=== PATIENT | female | born 1945 | race Caucasian/White ===

== ENCOUNTER 2017-06-21 10:55 | Inpatient (IN) | payer MEDICARE ==
[~2017-06-21] VITALS: Ht 175.3 cm; Wt 70.0 kg
[2017-06-21] MEDS ORDERED: IOHEXOL 350 MG/ML 10 ML VIAL (for RAD DIAG) IVCONTRAST ONE (10:56)
[2017-06-21 10:57] VITALS: BP 172/72; PULSE 122; RESP 18; TEMP 97.9; O2SAT 99
[2017-06-21 11:33] VITALS: BP 119/64; PULSE 82; RESP 24; O2SAT 100
[2017-06-21] MEDS ORDERED: SODIUM CHLORIDE 0.9% FLUSH 10 ML FLUSH IV FLUSH PRN (11:45)
[2017-06-21 12:59] LABS: AUTOMATED NEUTROPHIL # 9.7 TH/MM3 (1.8-7.7); BASOPHIL # 0.1 TH/MM3 (0-0.2); BASOPHIL % 0.4 % (0.0-2.0); EOSINOPHIL # 0.1 TH/MM3 (0-0.4); HEMATOCRIT 34.5 % (35.0-46.0); HEMOGLOBIN 11.8 GM/DL (11.6-15.3); LYMPH % 6.7 % (9.0-44.0); LYMPHOCYTE # 0.8 TH/MM3 (1.0-4.8); MEAN CELL VOLUME 88.1 FL (80.0-100.0); MEAN CORPUSCULAR HEMOGLOBIN 30.2 PG (27.0-34.0); MEAN CORPUSCULAR HGB CONC 34.3 % (32.0-36.0); MEAN PLATELET VOLUME 7.3 FL (7.0-11.0); MONO % 12.2 % (0.0-8.0); MONOCYTE # 1.5 TH/MM3 (0-0.9); NEUT % 79.7 % (16.0-70.0); PLATELET COUNT 420 TH/MM3 (150-450); RED BLOOD COUNT 3.91 MIL/MM3 (4.00-5.30); RED CELL DISTRIBUTION WIDTH 14.6 % (11.6-17.2); WHITE BLOOD COUNT 12.2 TH/MM3 (4.0-11.0)
[2017-06-21 13:07] LABS: ALBUMIN 2.7 GM/DL (3.4-5.0); ALT (GPT) 8 U/L (10-53); AST (GOT) 18 U/L (15-37); BICARBONATE 25.1 MEQ/L (21.0-32.0); BLOOD UREA NITROGEN 13 MG/DL (7-18); CALCIUM 8.5 MG/DL (8.5-10.1); CHLORIDE 108 MEQ/L (98-107); CREATININE 0.73 MG/DL (0.50-1.00); GLOMERULAR FILTRATION RATE 79 ML/MIN (>89); GLUCOSE,RANDOM 91 MG/DL (74-106); SODIUM (NA) 140 MEQ/L (136-145)
[2017-06-21 13:08] LABS: ALKALINE PHOSPHATASE 91 U/L (45-117); TOTAL BILIRUBIN ADULT 0.3 MG/DL (0.2-1.0); TOTAL PROTEIN 7.3 GM/DL (6.4-8.2)
--- NOTE | 2017-06-21 14:11 | PD ---
HPI Chief Complaint: GI Complaint Time Seen by Provider: 11:27 Travel History International Travel<30 days: No Contact w/Intl Traveler<30days: No Traveled to known affect area: No History of Present Illness HPI 71-year-old female arrives due to concern for perforation of bowel which is evidently observed on CT scan obtained yesterday as an outpatient at [facility]. Patient has a history of colon cancer and has been undergoing radiation therapy. She denies pain nausea vomiting fever. Chronic fatigue is reported. There has been no abrupt change in symptoms. PFSH Past Medical History Cancer: Yes (COLON) Radiation Therapy: Yes Thyroid Disease: Yes Influenza Vaccination: No Past Surgical History Section: Yes Hysterectomy: Yes Social History Alcohol Use: No Tobacco Use: No Substance Use: No Allergies-Medications (Allergen,Severity, Reaction): Coded Allergies: No Known Allergies (Unverified , 06/21/17) Reported Meds & Prescriptions Reported Meds & Active Scripts Active Active Prescriptions or Reported Medications Unobtainable Review of Systems Except as stated in HPI: all other systems reviewed are Neg General / Constitutional: No: Fever Physical Exam Narrative GENERAL: 71-year-old female pleasant no acute distress RECTAL: There is no palpable mass within the rectal vault however the mucosa is somewhat firm generally. Guaiac study is positive. There is no appreciable blood on gross exam. No fissure or fistula. SKIN: Warm and dry. HEAD: Atraumatic. Normocephalic. EYES: Pupils equal and round. No scleral icterus. No injection or drainage. ENT: No nasal bleeding or discharge. Mucous membranes pink and moist. CARDIOVASCULAR: Regular rate and rhythm. RESPIRATORY: No accessory muscle use. Clear to auscultation. Breath sounds equal bilaterally. GASTROINTESTINAL: Abdomen is soft. There is no focus of tenderness. MUSCULOSKELETAL: Extremities without clubbing, cyanosis, or edema. No obvious deformities. NEUROLOGICAL: Awake and alert. No obvious cranial nerve deficits. Motor grossly within normal limits. Five out of 5 muscle strength in the arms and legs. Normal speech. PSYCHIATRIC: Appropriate mood and affect; insight and judgment normal. Vital Signs Date Time Temp Pulse Resp B/P (MAP) Pulse Ox O2 Delivery O2 Flow Rate FiO2 06/21/17 14:36 76 17 108/58 (75) 100 Room Air 06/21/17 11:33 82 24 119/64 (82) 100 Room Air 06/21/17 10:57 97.9 122 18 172/72 (105) 99 Data Data Last Documented VS Vital Signs Date Time Temp Pulse Resp B/P (MAP) Pulse Ox O2 Delivery O2 Flow Rate FiO2 06/21/17 14:36 76 17 108/58 (75) 100 Room Air 06/21/17 10:57 97.9 Orders Orders Complete Blood Count With Diff (06/21/17 11:36) Comprehensive Metabolic Panel (06/21/17 11:36) Lactic Acid (06/21/17 11:36) Urinalysis - C+S If Indicated (06/21/17 11:36) Ct Abd/Pel W Iv Contrast(Rout) (06/21/17 11:36) Iv Access Insert/Monitor (06/21/17 11:36) Ecg Monitoring (06/21/17 11:36) Oximetry (06/21/17 11:36) Sodium Chloride 0.9% Flush (Ns Flush) (06/21/17 11:45) Iohexol 350 Inj (Omnipaque 350 Inj) (06/21/17 10:56) Admit Order (Ed Use Only) (06/21/17 ) Vital Signs (Adult) Q4H (06/21/17 14:54) Diet Heart Healthy (06/21/17 Dinner) Activity Bed Rest (06/21/17 14:54) Notify Dr: Other (06/21/17 14:54) Labs Laboratory Tests Test 06/21/17 11:50 06/21/17 14:05 White Blood Count 12.2 TH/MM3 Red Blood Count 3.91 MIL/MM3 Hemoglobin 11.8 GM/DL Hematocrit 34.5 % Mean Corpuscular Volume 88.1 FL Mean Corpuscular Hemoglobin 30.2 PG Mean Corpuscular Hemoglobin Concent 34.3 % Red Cell Distribution Width 14.6 % Platelet Count 420 TH/MM3 Mean Platelet Volume 7.3 FL Neutrophils (%) (Auto) 79.7 % Lymphocytes (%) (Auto) 6.7 % Monocytes (%) (Auto) 12.2 % Eosinophils (%) (Auto) 1.0 % Basophils (%) (Auto) 0.4 % Neutrophils # (Auto) 9.7 TH/MM3 Lymphocytes # (Auto) 0.8 TH/MM3 Monocytes # (Auto) 1.5 TH/MM3 Eosinophils # (Auto) 0.1 TH/MM3 Basophils # (Auto) 0.1 TH/MM3 CBC Comment AUTO DIFF Differential Comment AUTO DIFF CONFIRMED Platelet Estimate NORMAL Platelet Morphology Comment NORMAL Red Cell Morphology Comment NORMAL Blood Urea Nitrogen 13 MG/DL Creatinine 0.73 MG/DL Random Glucose 91 MG/DL Total Protein 7.3 GM/DL Albumin 2.7 GM/DL Calcium Level 8.5 MG/DL Alkaline Phosphatase 91 U/L Aspartate Amino Transf (AST/SGOT) 18 U/L Alanine Aminotransferase (ALT/SGPT) 8 U/L Total Bilirubin 0.3 MG/DL Sodium Level 140 MEQ/L Potassium Level 3.6 MEQ/L Chloride Level 108 MEQ/L Carbon Dioxide Level 25.1 MEQ/L Anion Gap 7 MEQ/L Estimat Glomerular Filtration Rate 79 ML/MIN Lactic Acid Level 1.4 mmol/L Urine Color YELLOW Urine Turbidity CLEAR Urine pH 5.5 Urine Specific [place] GREATER THAN 1.050 Urine Protein 30 mg/dL Urine Glucose (UA) NEG mg/dL Urine Ketones NEG mg/dL Urine Occult Blood NEG Urine Nitrite NEG Urine Bilirubin NEG Urine Urobilinogen 2.0 MG/DL Urine Leukocyte Esterase NEG Urine WBC 8 /hpf Urine Hyaline Casts 4 /lpf Urine Mucus FEW /lpf Microscopic Urinalysis Comment CULT NOT INDICATED MDM Medical Decision Making Medical Screen Exam Complete: Yes Emergency Medical Condition: Yes Medical Record Reviewed: Yes Differential Diagnosis Constipation, Gastritis, Acute Cholecystitis, Biliary Colic, Pancreatitis, HERNANDEZ , Hepatitis, Bowel Obstruction, Cystitis, Mesenteric Ischemia, AAA, Appendicitis , Renal Stone/Hydronephrosis, GERD, perforated viscous Narrative Course CBC & BMP Diagram 06/21/17 11:50 Total Protein 7.3, Albumin 2.7 L, Calcium Level 8.5, Alkaline Phosphatase 91, Aspartate Amino Transf (AST/SGOT) 18, Alanine Aminotransferase (ALT/SGPT) 8 L, Total Bilirubin 0.3 Last Impressions Abdomen/Pelvis CT 06/21/17 1136 Signed Impressions: Service Date/Time: June 13:21 - CONCLUSION: Eccentric wall thickening with perirectal fat invasion in the low pelvis characteristic of neoplasm. Small air pocket with an air fluid level identified lateral to the lower rectum is characteristic of a small contained perforation. No evidence of local regional lymphadenopathy or distant metastatic disease. Status post cholecystectomy and hysterectomy. Filipe Reeves MD Case was discussed with Dr. Cronin. The case was discussed with Dr. Lemus. The patient will be admitted for further investigation into the rectal mass with air in the bowel lumen. Her abdomen is soft and nontender. The rectal exam reveals no obvious mass however it does on exam reveal somewhat firm but nontender bowel wall. Diagnosis Primary Impression: Rectal mass Additional Impression: Perforation of rectum Admitting Information Admitting Physician Requests: Observation Scripts Unable to Obtain Active Prescriptions or Reported Meds Trevor Markham MD Jun 21, 2017 14:11
--- NOTE | 2017-06-21 14:28 | RADRPT ---
EXAM DATE/TIME: 06/21/2017 13:21 [place] COMPARISON: No previous studies available for comparison. INDICATIONS : Lower abdominal pain, bloody stool. IV CONTRAST: 95 cc Omnipaque 350 (iohexol) IV ORAL CONTRAST: No oral contrast ingested. RADIATION DOSE: 6.64 CTDIvol (mGy) MEDICAL HISTORY : Carcinoma, colon. SURGICAL HISTORY : Hysterectomy. Cholecystectomy. ENCOUNTER: Initial ACUITY: 1 week PAIN SCALE: 3/10 LOCATION: Bilateral lower quadrant TECHNIQUE: Volumetric scanning of the abdomen and pelvis was performed. Using automated exposure control and ad justment of the mA and/or kV according to patient size, radiation dose was kept as low as reasonably achievable to obtain optimal diagnostic quality images. DICOM format image data is available electro nically for review and comparison. FINDINGS: LOWER LUNGS: The visualized lower lungs are clear. LIVER: Homogeneous density without lesion. There is no dilation of the biliary tree. Post cholecystectomy c lips are noted. SPLEEN: Normal size without lesion. PANCREAS: Within normal limits. KIDNEYS: Normal in size and shape. There is no mass, stone or hydronephrosis. ADRENAL GLANDS: Within normal limits. VASCULAR: There is no aortic aneurysm. BOWEL/MESENTERY: Eccentric wall thickening with perirectal fat invasion extending to the pre-coccygeal soft tissues is identified in the pelvis. Just above the anus there is a left-sided air pocket with an air fluid lev el which appears to be extraluminal. Scattered diverticula are seen in the sigmoid colon. Intestinal tract is otherwise unremarkable. ABDOMINAL WALL: Within normal limits. RETROPERITONEUM: There is no lymphadenopathy. BLADDER: No wall thickening or mass. REPRODUCTIVE: Uterus is been removed. INGUINAL: There is no lymphadenopathy or hernia. MUSCULOSKELETAL: Within normal limits for patient age. CONCLUSION: Eccentric wall thickening with perirectal fat invasion in the low pelvis characteristic of neoplasm. Small air pocket with an air fluid level identified lateral to the lower rectum is characteristic of a small contained perforation. No evidence of local regional lymphadenopathy or distant metastatic disease. Status post cholecystectomy and hysterectomy. Filipe Reeves MD on June 21, 2017 at 14:20 Board Certified Radiologist. This report was verified electronically.
[2017-06-21 14:36] VITALS: BP 108/58; PULSE 76; RESP 17; O2SAT 100
[2017-06-21 15:24] LABS: BILIRUBIN, URINE NEG (NEG); BLOOD, URINE NEG (NEG); GLUCOSE,URINE NEG (NEG); HYALINE CAST, URINE 4 /lpf (RARE); KETONE, URINE NEG (NEG); MUCUS URINE FEW /lpf (OCC); NITRITE,URINE NEG (NEG); PH, URINE 5.5 (5.0-8.5); URINE COLOR YELLOW (YELLW/STRAW); URINE LEUKOCYTE ESTERASE NEG (NEG)
[2017-06-21] MEDS ORDERED: MORPHINE SULFATE 2 MG/ML INJ IV PUSH PRN (16:00)
[2017-06-21] MEDS ORDERED: NALOXONE HCL 0.4 MG/ML AMP IV PUSH PRN (16:00)
[2017-06-21] MEDS ORDERED: SENNOSIDES 8.6 MG TAB PO PRN (16:00)
[2017-06-21] MEDS ORDERED: ONDANSETRON HCL 4 MG/2 ML VIAL IVP PRN (16:00)
--- NOTE | 2017-06-21 16:09 | HHI.HP ---
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 Over the last months she has had increasing rectal pain which became worse today and was associated with an inability to produce a bowel movement. She denies fevers denies diarrhea. In the past she underwent radiation and chemotherapy for treatment of her colorectal cancer. Treatment was in [place]. She has a daughter Peyton whose phone number is [phone]. Review of Systems Constitutional: DENIES: Fever, Weight gain, Weight loss, Chills Eyes: DENIES: Blurred vision, Diplopia, Eye inflammation, Eye pain Ears, nose, mouth, throat: DENIES: Tinnitus, Vertigo, Throat pain, Hoarseness Respiratory: DENIES: Cough, Wheezing, Hemoptysis, Sputum production Cardiovascular: DENIES: Chest pain, Palpitations, Syncope Gastrointestinal: COMPLAINS OF: Abdominal pain, Constipation, DENIES: Black stools, Bloody stools, Diarrhea, Nausea, Vomiting, Difficulty Swallowing Genitourinary: DENIES: Abnormal vaginal bleeding, Dysmenorrhea, Dyspareunia Musculoskeletal: DENIES: Joint pain, Muscle aches, Stiffness Neurologic: DENIES: Headache, Localized weakness, Seizures, Speech Problems, Poor Balance Psychiatric: DENIES: Anxiety, Confusion, Depression Past Family Social History Past Medical History Hypothyroidism Thyroid cancer Early dementia Past Surgical History Thyroidectomy section 3 Allergies: Coded Allergies: No Known Allergies (Unverified , 06/21/17) Family History Stomach cancer in grandmother GI cancer in uncle and father Social History Denies tobacco or alcohol use Physical Exam Vital Signs Vital Signs Date Time Temp Pulse Resp B/P (MAP) Pulse Ox O2 Delivery O2 Flow Rate FiO2 06/21/17 14:36 76 17 108/58 (75) 100 Room Air 06/21/17 11:33 82 24 119/64 (82) 100 Room Air 06/21/17 10:57 97.9 122 18 172/72 (105) 99 Physical Exam GENERAL: This is a thin but strong appearing patient, in no apparent distress. SKIN: No rashes, ecchymoses or lesions. Cool and dry. HEAD: Atraumatic. Normocephalic. No temporal or scalp tenderness. EYES: Pupils equal round and reactive. Mild strabismus left eye. No scleral icterus. No injection or drainage. ENT: Nose without bleeding, purulent drainage or septal hematoma. Throat without erythema, tonsillar hypertrophy or exudate. Uvula midline. Airway patent. NECK: Trachea midline. No JVD or lymphadenopathy. Supple, nontender, no meningeal signs. CARDIOVASCULAR: Regular rate and rhythm without murmurs, gallops, or rubs. RESPIRATORY: Clear to auscultation. Breath sounds equal bilaterally. No wheezes , rales, or rhonchi. GASTROINTESTINAL: Abdomen soft, non-tender, nondistended. No hepato-splenomegaly , or palpable masses. No guarding. MUSCULOSKELETAL: Extremities without clubbing, cyanosis, or edema. No joint tenderness, effusion, or edema noted. No calf tenderness. Negative Homans sign bilaterally. NEUROLOGICAL: Awake and alert. Cranial nerves II through XII intact. Motor and sensory grossly within normal limits. Five out of 5 muscle strength in all muscle groups. Normal speech. Laboratory Laboratory Tests Test 06/21/17 11:50 06/21/17 14:05 White Blood Count 12.2 Red Blood Count 3.91 Hemoglobin 11.8 Hematocrit 34.5 Mean Corpuscular Volume 88.1 Mean Corpuscular Hemoglobin 30.2 Mean Corpuscular Hemoglobin Concent 34.3 Red Cell Distribution Width 14.6 Platelet Count 420 Mean Platelet Volume 7.3 Neutrophils (%) (Auto) 79.7 Lymphocytes (%) (Auto) 6.7 Monocytes (%) (Auto) 12.2 Eosinophils (%) (Auto) 1.0 Basophils (%) (Auto) 0.4 Neutrophils # (Auto) 9.7 Lymphocytes # (Auto) 0.8 Monocytes # (Auto) 1.5 Eosinophils # (Auto) 0.1 Basophils # (Auto) 0.1 CBC Comment AUTO DIFF Differential Comment AUTO DIFF CONFIRMED Platelet Estimate NORMAL Platelet Morphology Comment NORMAL Red Cell Morphology Comment NORMAL Blood Urea Nitrogen 13 Creatinine 0.73 Random Glucose 91 Total Protein 7.3 Albumin 2.7 Calcium Level 8.5 Alkaline Phosphatase 91 Aspartate Amino Transf (AST/SGOT) 18 Alanine Aminotransferase (ALT/SGPT) 8 Total Bilirubin 0.3 Sodium Level 140 Potassium Level 3.6 Chloride Level 108 Carbon Dioxide Level 25.1 Anion Gap 7 Estimat Glomerular Filtration Rate 79 Lactic Acid Level 1.4 Urine Color YELLOW Urine Turbidity CLEAR Urine pH 5.5 Urine Specific [place] GREATER THAN 1.050 Urine Protein 30 Urine Glucose (UA) NEG Urine Ketones NEG Urine Occult Blood NEG Urine Nitrite NEG Urine Bilirubin NEG Urine Urobilinogen 2.0 Urine Leukocyte Esterase NEG Urine WBC 8 Urine Hyaline Casts 4 Urine Mucus FEW Microscopic Urinalysis Comment CULT NOT INDICATED Result Diagram: 06/21/17 1150 06/21/17 1150 Caprinshikha VTE Risk Assessment Caprini VTE Risk Assessment: Mod/High Risk (score >= 2) Caprini Risk Assessment Model Point Value = 1 Point Value = 2 Point Value = 3 Point Value = 5 Age 41-60 Minor surgery BMI > 25 kg/m2 Swollen legs Varicose veins or History of unexplained or recurrent spontaneous Oral contraceptives or hormone replacement Sepsis (< 1 month) Serious lung disease, including pneumonia (< 1 month) Abnormal pulmonary function Acute myocardial infarction Congestive heart failure (< 1 month) History of inflammatory bowel disease Medical patient at bed rest Age 61-74 Arthroscopic surgery Major open surgery (> 45 min) Laparoscopic surgery (> 45 min) Malignancy Confined to bed (> 72 hours) Immobilizing plaster cast Central venous access Age >= 75 History of VTE Family history of VTE Factor V Leiden Prothrombin [id number] Lupus anticoagulant Anticardiolipin antibodies Elevated serum homocysteine Heparin-induced thrombocytopenia Other congenital or acquired thrombophilia Stroke (< 1 month) Elective arthroplasty Hip, pelvis, or leg fracture Acute spinal cord injury (< 1 month) Prophylaxis Regimen Total Risk Factor Score Risk Level Prophylaxis Regimen 0-1 Low Early ambulation 2 Moderate Order ONE of the following: *Sequential Compression Device (SCD) *Heparin 5000 units SQ BID 3-4 Higher Order ONE of the following medications: *Heparin 5000 units SQ TID *Enoxaparin/Lovenox 40 mg SQ daily (WT < 150 kg, CrCl > 30 mL/min) *Enoxaparin/Lovenox 30 mg SQ daily (WT < 150 kg, CrCl > 10-29 mL/min) *Enoxaparin/Lovenox 30 mg SQ BID (WT < 150 kg, CrCl > 30 mL/min) AND/OR *Sequential Compression Device (SCD) 5 or more Highest Order ONE of the following medications: *Heparin 5000 units SQ TID (Preferred with Epidurals) *Enoxaparin/Lovenox 40 mg SQ daily (WT < 150 kg, CrCl > 30 mL/min) *Enoxaparin/Lovenox 30 mg SQ daily (WT < 150 kg, CrCl > 10-29 mL/min) *Enoxaparin/Lovenox 30 mg SQ BID (WT < 150 kg, CrCl > 30 mL/min) AND *Sequential Compression Device (SCD) Assessment and Plan Problem List: (1) Rectal mass ICD Code: K62.9 - Disease of anus and rectum, unspecified Assessment and Plan Rectal mass Patient has a history of colorectal cancer 2-3 months of narrow bore stools, worsening 1 month of worsening rectal pain with inability to produce BM today Recurrence of colorectal cancer is a very likely scenario Appreciate colorectal surgery consult Leukocytosis Urinalysis shows no infection We will obtain chest x-ray to rule out common causes We will cover with Flagyl given her pockets in rectal tissue Follow WBC trend h/o Hypothyroidism History of thyroid cancer and total thyroidectomy Continue home Synthroid dose h/o Early Dementia She takes no medicine for this yet DVT Prophylaxis SCDs (anticoagulants if surgery not anticipated) Physician Certification 2 Midnight Certification Type: Admission for Inpatient Services Order for Inpatient Services The services are ordered in accordance with Medicare regulations or non- Medicare payer requirements, as applicable. In the case of services not specified as inpatient-only, they are appropriately provided as inpatient services in accordance with the 2-midnight benchmark. Estimated LOS (days): 6 days is the estimated time the patient will need to remain in the hospital, assuming treatment plan goals are met and no additional complications. Post-Hospital Plan: Home Health Palomo Pacheco MD Jun 21, 2017 16:09
[2017-06-21] MEDS: metroNIDAZOLE 500 MG INJ 100 ML IV SCH (16:41)
[2017-06-21] MEDS: traMADol HCL 50 MG TAB PO PRN (16:42)
[2017-06-21 16:43] VITALS: BP 113/69; PULSE 72; RESP 23; O2SAT 100
[2017-06-21 17:08] VITALS: BP 143/65; PULSE 69; RESP 16; TEMP 98.1
[2017-06-21 21:10] VITALS: BP_SYST 100; BP_SYST 121; BP_DIAS 59; BP_DIAS 73; PULSE 63; PULSE 85; RESP 18; TEMP 95.9; TEMP 99.6; O2SAT 96; O2SAT 97
[2017-06-21] MEDS ORDERED: CHLORHEXIDINE GLUCONATE 2 % 1 PACK (2 CLOTHS) TOPICAL PRN ×2 (22:15→22:30)
[2017-06-21] MEDS ORDERED: METOPROLOL TARTRATE 25 MG TAB PO PRN (22:15)
[2017-06-21] MEDS ORDERED: LACTATED RINGER'S 1000 ML IV PRN ×2 (22:15→22:30)
[2017-06-21] MEDS ORDERED: SODIUM CHLORID 0.9% 500 ML IV PRN ×2 (22:15→22:30)
[2017-06-21] MEDS ORDERED: POVIDONE IODINE 5% (ANTISEPSIS KIT) 4 APPLICATIONS EACH NARE PRN ×2 (22:15→22:30)
[2017-06-21] MEDS: MAGNESIUM CITRATE SOLN 300 ML BTL PO SCH (23:15)
[2017-06-21] MEDS: SODIUM CHLORIDE 0.9% FLUSH 10 ML FLUSH IV FLUSH PRN (23:15)
[2017-06-21] MEDS: SODIUM CHLOR 0.9% 1000 ML INJ 1,000 ML IV SCH (23:15)
[2017-06-22] VITALS: BP 116/58; PULSE 69; RESP 18; TEMP 97.7; O2SAT 99
[2017-06-22] MEDS: metroNIDAZOLE 500 MG INJ 100 ML IV SCH ×3 (00:33→16:56)
[2017-06-22] MEDS: traMADol HCL 50 MG TAB PO PRN (00:35)
[2017-06-22] MEDS: MAGNESIUM CITRATE SOLN 300 ML BTL PO SCH (02:20)
[2017-06-22] MEDS: SODIUM CHLORIDE 0.9% FLUSH 10 ML FLUSH IV FLUSH PRN (03:29)
[2017-06-22 07:17] LABS: AUTOMATED NEUTROPHIL # 4.5 TH/MM3 (1.8-7.7); BASOPHIL % 0.4 % (0.0-2.0); EOSINOPHIL # 0.1 TH/MM3 (0-0.4); EOSINOPHIL % 1.7 % (0.0-4.0); HEMATOCRIT 29.2 % (35.0-46.0); HEMOGLOBIN 10.1 GM/DL (11.6-15.3); LYMPH % 7.7 % (9.0-44.0); LYMPHOCYTE # 0.4 TH/MM3 (1.0-4.8); MEAN CELL VOLUME 88.6 FL (80.0-100.0); MEAN CORPUSCULAR HEMOGLOBIN 30.6 PG (27.0-34.0); MEAN CORPUSCULAR HGB CONC 34.5 % (32.0-36.0); MEAN PLATELET VOLUME 6.7 FL (7.0-11.0); MONO % 12.2 % (0.0-8.0); MONOCYTE # 0.7 TH/MM3 (0-0.9); PLATELET COUNT 348 TH/MM3 (150-450); RED BLOOD COUNT 3.29 MIL/MM3 (4.00-5.30); RED CELL DISTRIBUTION WIDTH 14.6 % (11.6-17.2); WHITE BLOOD COUNT 5.7 TH/MM3 (4.0-11.0)
[2017-06-22 07:40] LABS: BICARBONATE 26.2 MEQ/L (21.0-32.0); CALCIUM 8.3 MG/DL (8.5-10.1); CREATININE 0.56 MG/DL (0.50-1.00)
[2017-06-22 08:00] VITALS: BP 99/50; PULSE 66; RESP 18; TEMP 96.9; O2SAT 97
[2017-06-22] MEDS: SODIUM CHLOR 0.9% 1000 ML INJ 1,000 ML IV SCH ×2 (08:15→18:00)
[2017-06-22 12:00] VITALS: BP 95/54; PULSE 74; RESP 18; TEMP 98.5; O2SAT 98
[2017-06-22] MEDS ORDERED: PROPOFOL 200 MG/20 ML AMP IV ONE (12:00)
[2017-06-22] MEDS ORDERED: LIDOCAINE HCL 1% PF 5 ML SYRINGE OTHER ONE (12:00)
[2017-06-22] MEDS ORDERED: ROCURONIUM INJ 50 MG/5 ML SYRINGE IV PUSH ONE (12:00)
[2017-06-22] MEDS ORDERED: ceFAZolin INJ 1,000 MG VIAL IV ONE ×2 (12:00→16:30)
[2017-06-22] MEDS ORDERED: GLYCOPYRROLATE 1 MG/5 ML SYRINGE IV PUSH ONE (12:00)
[2017-06-22] MEDS ORDERED: DEXAMETHASONE SOD PHOS 4 MG/ML VIAL IV ONE (12:00)
[2017-06-22] MEDS ORDERED: NEOSTIGMINE 5 MG/5 ML SYRINGE IV PUSH ONE (12:00)
[2017-06-22] MEDS ORDERED: ONDANSETRON HCL 4 MG/2 ML VIAL IV ONE (12:00)
[2017-06-22] MEDS ORDERED: PHENYLEPH/NS 1000 MCG/10 ML SYR IV ONE (12:00)
[2017-06-22] MEDS ORDERED: LIDOCAINE 1%/EPINEPHrine 1:100,000 SOLN 50 ML VIAL ONE (14:52)
[2017-06-22] MEDS ORDERED: LIDOCAINE 1%/EPINEPHrine 1:100,000 SOLN 30 ML VIAL ONE (14:52)
--- NOTE | 2017-06-22 15:47 | HHI.PR ---
Subjective Remarks Patient is in good spirits today despite likely diagnosis of recurrence of rectal cancer. Her pain is adequately controlled and she is planned for exploratory laparotomy with colorectal surgery this afternoon. She remains n.p.o. for surgery. Objective Vitals Vital Signs Date Time Temp Pulse Resp B/P (MAP) Pulse Ox O2 Delivery O2 Flow Rate FiO2 06/22/17 12:00 98.5 74 18 95/54 (68) 98 06/22/17 08:00 96.9 66 18 99/50 (66) 97 06/22/17 00:00 97.7 69 18 116/58 (77) 99 06/21/17 21:10 95.9 85 18 121/59 (79) 97 06/21/17 17:08 98.1 69 16 143/65 (91) 06/21/17 16:59 06/21/17 16:43 72 23 113/69 (84) 100 Room Air I/O 06/21/17 06/21/17 06/21/17 06/22/17 06/22/17 06/22/17 07:00 15:00 23:00 07:00 15:00 23:00 Intake Total 100 ml Balance 100 ml Intake IV Total 100 ml Result Diagram: 06/22/17 0549 06/22/17 0549 Objective Remarks GENERAL: Thin but energetic SKIN: Warm and dry. HEAD: Normocephalic. EYES: No scleral icterus. No injection or drainage. NECK: Supple, trachea midline. No JVD or lymphadenopathy. CARDIOVASCULAR: Regular rate and rhythm without murmurs, gallops, or rubs. RESPIRATORY: Breath sounds equal bilaterally. No accessory muscle use. GASTROINTESTINAL: Abdomen soft, non-tender, nondistended. EXTREMITIES: No cyanosis, or edema. NEUROLOGICAL: Awake, alert, and oriented x 3. Non-focal. A/P Problem List: (1) Rectal mass ICD Code: K62.9 - Disease of anus and rectum, unspecified Assessment and Plan Rectal mass Patient has a history of colorectal cancer 2-3 months of narrow bore stools, worsening 1 month of worsening rectal pain with inability to produce BM today Recurrence of colorectal cancer is a very likely scenario Undergoing surgery today with possible ileostomy placement Appreciate colorectal surgery consult Leukocytosis White blood cells are normal today Continue Flagyl given her pockets in rectal tissue h/o Hypothyroidism History of thyroid cancer and total thyroidectomy Continue home Synthroid dose h/o Early Dementia She takes no medicine for this yet DVT Prophylaxis SCDs Palomo Pacheco MD Jun 22, 2017 15:47
[2017-06-22 16:00] VITALS: BP 114/56; PULSE 72; RESP 18; TEMP 98.5; O2SAT 96
[2017-06-22] MEDS ORDERED: DO NOT ADM ANY ANTICOAGULANT DRUGS PRN (18:25)
[2017-06-22] MEDS ORDERED: BENZOCAINE 6 MG/MENTHOL 10 MG LOZENGE BUCCAL PRN (18:30)
[2017-06-22] MEDS ORDERED: Post-op Orders (for Pharmacy) XX ONE (18:30)
[2017-06-22] MEDS ORDERED: POTASSIUM CHLOR 20 MEQ PREMIX 100 ML IV PRN (18:30)
[2017-06-22] MEDS ORDERED: NALOXONE HCL 0.4 MG/ML AMP IV PUSH PRN (18:30)
[2017-06-22] MEDS ORDERED: ACETAMINOPHEN 325 MG TAB PO PRN (18:30)
[2017-06-22] MEDS ORDERED: metroNIDAZOLE 500 MG INJ 100 ML IV SCH (18:30)
[2017-06-22] MEDS ORDERED: ENALAPRILAT 2.5 MG/2 ML VIAL IV PUSH PRN (18:30)
[2017-06-22] MEDS ORDERED: ENALAPRILAT 1.25 MG/ML VIAL IV PUSH PRN (18:30)
[2017-06-22] MEDS ORDERED: POTASSIUM CHLOR 40 MEQ PREMIX 100 ML IV PRN (18:30)
[2017-06-22] MEDS ORDERED: ONDANSETRON HCL 4 MG/2 ML VIAL IV PUSH PRN (18:30)
[2017-06-22] MEDS ORDERED: MORPHINE SULFATE 30 MG/30 ML PCA IV SCH (18:30)
[2017-06-22] MEDS ORDERED: MIDAZOLAM HCL 2 MG/2 ML VIAL ONE (18:39)
[2017-06-22] MEDS ORDERED: *morphine SULFATE 10 MG/ML PERIprocedure ONLY ONE (18:40)
[2017-06-22 20:00] VITALS: BP 118/58; PULSE 83; RESP 18; TEMP 96.6; O2SAT 95
[2017-06-22] MEDS: PCA - TOTAL MG MORPHINE DELIVERED PER SHIFT SCH (22:00)
[2017-06-22] MEDS: METOCLOPRAMIDE HCL 10 MG/2 ML VIAL IVS SCH (23:21)
[2017-06-23] VITALS: BP 94/53; PULSE 73; RESP 18; TEMP 97.5; O2SAT 95
--- NOTE | 2017-06-23 00:20 | EKG ---
Date Performed: 06/21/2017 Time Performed: 22:03:42 PTAGE: 71 years EKG: Sinus rhythm MARKED LEFT AXIS DEVIATION ABNORMAL ECG NO PREVIOUS TRACING DOCTOR: Cristela Ribeiro Interpretating Date/Time 06/23/2017 00:18:25
[2017-06-23] MEDS: metroNIDAZOLE 500 MG INJ 100 ML IV SCH ×3 (00:35→16:32)
[2017-06-23] MEDS: D5-NS + KCL 20 MEQ INJ 1,000 ML IV SCH ×3 (01:58→18:37)
[2017-06-23 04:00] VITALS: BP 102/54; PULSE 73; RESP 18; TEMP 97.5; O2SAT 94
[2017-06-23] MEDS: PCA - TOTAL MG MORPHINE DELIVERED PER SHIFT SCH (06:00)
[2017-06-23 06:41] LABS: AUTOMATED NEUTROPHIL # 6.8 TH/MM3 (1.8-7.7); BASOPHIL % 0.1 % (0.0-2.0); EOSINOPHIL % 0.1 % (0.0-4.0); HEMATOCRIT 27.9 % (35.0-46.0); HEMOGLOBIN 9.5 GM/DL (11.6-15.3); LYMPH % 3.6 % (9.0-44.0); LYMPHOCYTE # 0.3 TH/MM3 (1.0-4.8); MEAN CELL VOLUME 87.4 FL (80.0-100.0); MEAN CORPUSCULAR HEMOGLOBIN 29.7 PG (27.0-34.0); MEAN PLATELET VOLUME 6.6 FL (7.0-11.0); MONO % 9.9 % (0.0-8.0); MONOCYTE # 0.8 TH/MM3 (0-0.9); NEUT % 86.3 % (16.0-70.0); PLATELET COUNT 330 TH/MM3 (150-450); RED BLOOD COUNT 3.19 MIL/MM3 (4.00-5.30); RED CELL DISTRIBUTION WIDTH 14.5 % (11.6-17.2); WHITE BLOOD COUNT 7.9 TH/MM3 (4.0-11.0)
[2017-06-23 06:55] LABS: BICARBONATE 25.3 MEQ/L (21.0-32.0); CREATININE 0.5 MG/DL (0.50-1.00)
[2017-06-23 08:00] VITALS: BP 101/58; PULSE 72; RESP 16; TEMP 97.7; O2SAT 95
[2017-06-23] MEDS: PANTOPRAZOLE SOD 40 MG DELAYED RELEASE TAB PO SCH (09:00)
[2017-06-23] MEDS: METOCLOPRAMIDE HCL 10 MG/2 ML VIAL IVS SCH ×2 (09:00→19:48)
[2017-06-23] MEDS: PANTOPRAZOLE SODIUM 40 MG VIAL IVP SCH (09:03)
--- NOTE | 2017-06-23 10:43 | HHI.PR ---
Subjective Remarks No N or V. Not much pain. No BMs. Objective Vital Signs Date Time Temp Pulse Resp B/P (MAP) Pulse Ox O2 Delivery O2 Flow Rate FiO2 06/23/17 08:00 97.7 72 16 101/58 (72) 95 06/23/17 06:00 20 06/23/17 04:00 97.5 73 18 102/54 (70) 94 06/23/17 00:00 97.5 73 18 94/53 (67) 95 06/22/17 22:00 18 06/22/17 20:00 96.6 83 18 118/58 (78) 95 06/22/17 19:36 12 06/22/17 18:45 62 18 129/63 (85) 95 Room Air 06/22/17 18:30 67 21 141/65 (90) 100 Room Air 06/22/17 18:27 97.8 71 23 136/62 (86) 100 06/22/17 16:00 98.5 72 18 114/56 (75) 96 06/22/17 12:00 98.5 74 18 95/54 (68) 98 I/O 06/22/17 06/22/17 06/22/17 06/23/17 06/23/17 06/23/17 07:00 15:00 23:00 07:00 15:00 23:00 Intake Total 100 ml 400 ml Output Total 259 ml 150 ml Balance 100 ml 141 ml -150 ml Intake Oral 0 ml IV Total 100 ml Other 400 ml Output Urine Total 250 ml 150 ml Estimated Blood Loss 9 ml # Voids 3 # Bowel Movements 1 Result Diagram: 06/23/1761006/23/17 06 Objective Remarks VS-S Abd: soft,non distended. Stoma Swollen,pink. I&Os and Labs-OK Assessment and Plan Assessment and Plan Stable POD#1 Advance diet,decrease IVs, ambulate. Bryce Price MD Jun 23, 2017 10:42
[2017-06-23 12:00] VITALS: BP 106/53; PULSE 67; RESP 15; TEMP 96.7; O2SAT 96
[2017-06-23] MEDS: ACETAMINOPHEN/HYDROcodone 325 MG/5 MG TAB PO PRN ×3 (12:23→20:34)
[2017-06-23 16:00] VITALS: BP 105/58; PULSE 68; RESP 17; TEMP 96.5; O2SAT 94
--- NOTE | 2017-06-23 16:30 | HHI.PR ---
Subjective Remarks Pt seen and examined. POD1 s/p ex lap.AFVSS. No acute events overnight. Patient feels weak but pain is controlled. Denies N/V, CP, or SOB. Endorses some mild abdominal pain. No BM or flatus. Objective Vitals Vital Signs Date Time Temp Pulse Resp B/P (MAP) Pulse Ox O2 Delivery O2 Flow Rate FiO2 06/23/17 16:00 96.5 68 17 105/58 (74) 94 06/23/17 12:00 96.7 67 15 106/53 (70) 96 06/23/17 08:00 97.7 72 16 101/58 (72) 95 06/23/17 06:00 20 06/23/17 04:00 97.5 73 18 102/54 (70) 94 06/23/17 00:00 97.5 73 18 94/53 (67) 95 06/22/17 22:00 18 06/22/17 20:00 96.6 83 18 118/58 (78) 95 06/22/17 19:36 12 06/22/17 18:45 62 18 129/63 (85) 95 Room Air 06/22/17 18:30 67 21 141/65 (90) 100 Room Air 06/22/17 18:27 97.8 71 23 136/62 (86) 100 I/O 06/22/17 06/22/17 06/22/17 06/23/17 06/23/17 06/23/17 07:00 15:00 23:00 07:00 15:00 23:00 Intake Total 100 ml 400 ml Output Total 259 ml 150 ml Balance 100 ml 141 ml -150 ml Intake Oral 0 ml IV Total 100 ml Other 400 ml Output Urine Total 250 ml 150 ml Estimated Blood Loss 9 ml # Voids 3 # Bowel Movements 1 Result Diagram: 06/23/17 0611 06/23/17 0611 Objective Remarks GENERAL: WN, WD elderly female laying comfortably in bed in NAD. SKIN: Warm and dry. HEENT: Pupils equal and round. MMM. NECK: Supple no tender LAD or JVD. HEART: RRR no m/r/g. LUNGS: CTAB without wheezes or crackles. ABDOMEN: Soft, NT, ND. Stoma pink. EXTREMITIES: No LE edema or calf tenderness. NEURO: Awake and alert. PSYCH: Appropriate mood and affect. A/P Problem List: (1) Rectal mass ICD Code: K62.9 - Disease of anus and rectum, unspecified Assessment and Plan Rectal mass Patient has a history of colorectal cancer 2-3 months of narrow bore stools, worsening 1 month of worsening rectal pain with inability to produce BM Recurrence of colorectal cancer is a very likely scenario Underwent ex lap yesterday with stoma Appreciate colorectal surgery consult Pain control Hypothyroidism History of thyroid cancer and total thyroidectomy Continue home Synthroid dose Early Dementia She takes no medicine for this yet DVT Prophylaxis Lovenox FEN Advance diet as tolerated IVF at 75 ml/hr Mary Ann Griffin MD Jun 23, 2017 16:30
[2017-06-23] MEDS: ENOXAPARIN SODIUM 40 MG/0.4 ML SYRINGE SQ SCH (17:06)
[2017-06-23] MEDS: KETOROLAC TROMETHAMINE 30 MG/ML (IVP) VIAL IVP PRN (18:43)
[2017-06-23 20:00] VITALS: BP 103/53; PULSE 71; RESP 20; TEMP 97.6; O2SAT 93
[2017-06-24] VITALS: BP 101/56; PULSE 69; RESP 18; TEMP 97; O2SAT 95
[2017-06-24] MEDS: metroNIDAZOLE 500 MG INJ 100 ML IV SCH ×2 (01:08→08:44)
[2017-06-24] MEDS: ACETAMINOPHEN/HYDROcodone 325 MG/5 MG TAB PO PRN ×5 (01:11→22:30)
[2017-06-24] MEDS: D5-NS + KCL 20 MEQ INJ 1,000 ML IV SCH (05:56)
[2017-06-24 08:00] VITALS: BP 123/63; PULSE 65; RESP 16; TEMP 98.5; O2SAT 95
[2017-06-24] MEDS: KETOROLAC TROMETHAMINE 30 MG/ML (IVP) VIAL IVP PRN (08:42)
[2017-06-24] MEDS: METOCLOPRAMIDE HCL 10 MG/2 ML VIAL IVS SCH ×2 (08:42→20:16)
[2017-06-24] MEDS: PANTOPRAZOLE SODIUM 40 MG VIAL IVP SCH (08:44)
[2017-06-24] MEDS: PANTOPRAZOLE SOD 40 MG DELAYED RELEASE TAB PO SCH (08:44)
--- NOTE | 2017-06-24 09:51 | HHI.PR ---
Subjective Remarks Had some nausea after pain med on empty stomach. None now. No vomitung. Not much pain. No BMs. Objective Vital Signs Date Time Temp Pulse Resp B/P (MAP) Pulse Ox O2 Delivery O2 Flow Rate FiO2 06/24/17 08:00 98.5 65 16 123/63 (83) 95 06/24/17 00:00 97.0 69 18 101/56 (71) 95 06/23/17 20:00 97.6 71 20 103/53 (70) 93 06/23/17 16:00 96.5 68 17 105/58 (74) 94 06/23/17 12:00 96.7 67 15 106/53 (70) 96 I/O 06/23/17 06/23/17 06/23/17 06/24/17 06/24/17 06/24/17 07:00 15:00 23:00 07:00 15:00 23:00 Intake Total 1440 ml 360 ml Output Total 150 ml 700 ml 600 ml Balance -150 ml 740 ml -240 ml Intake Oral 240 ml 360 ml IV Total 1200 ml Output Urine Total 150 ml 700 ml 600 ml Stool Total 0 ml # Bowel Movements 0 Result Diagram: 06/23/17 0611 06/23/17 0611 Objective Remarks VS-S Abd: soft,non distended. Stoma Swollen,pink. No stool Assessment and Plan Assessment and Plan Stable POD#2 Advance diet,decrease IVs, ambulate.D/C Bryce Lang MD Jun 24, 2017 09:51
[2017-06-24 09:52] LABS: AUTOMATED NEUTROPHIL # 4.1 TH/MM3 (1.8-7.7); BASOPHIL % 0.3 % (0.0-2.0); EOSINOPHIL # 0.1 TH/MM3 (0-0.4); EOSINOPHIL % 1.8 % (0.0-4.0); HEMATOCRIT 27.8 % (35.0-46.0); HEMOGLOBIN 9.6 GM/DL (11.6-15.3); LYMPH % 7.3 % (9.0-44.0); LYMPHOCYTE # 0.4 TH/MM3 (1.0-4.8); MEAN CELL VOLUME 88.2 FL (80.0-100.0); MEAN CORPUSCULAR HEMOGLOBIN 30.4 PG (27.0-34.0); MEAN CORPUSCULAR HGB CONC 34.5 % (32.0-36.0); MEAN PLATELET VOLUME 6.4 FL (7.0-11.0); MONO % 11.8 % (0.0-8.0); MONOCYTE # 0.6 TH/MM3 (0-0.9); NEUT % 78.8 % (16.0-70.0); PLATELET COUNT 305 TH/MM3 (150-450); RED BLOOD COUNT 3.15 MIL/MM3 (4.00-5.30); RED CELL DISTRIBUTION WIDTH 14.8 % (11.6-17.2); WHITE BLOOD COUNT 5.2 TH/MM3 (4.0-11.0)
[2017-06-24 10:08] LABS: BICARBONATE 28.6 MEQ/L (21.0-32.0); CALCIUM 8.1 MG/DL (8.5-10.1); CREATININE 0.55 MG/DL (0.50-1.00)
[2017-06-24 12:00] VITALS: BP 125/68; PULSE 63; RESP 17; TEMP 97.3; O2SAT 96
--- NOTE | 2017-06-24 17:05 | HHI.PR ---
Subjective Remarks Pt seen and examined. AFVSS. No acute events overnight. Reports she is feeling better today. She is trying to eat more. Denies N/V or significant abdominal pain. No CP or SOB. Objective Vitals Vital Signs Date Time Temp Pulse Resp B/P (MAP) Pulse Ox O2 Delivery O2 Flow Rate FiO2 06/24/17 12:00 97.3 63 17 125/68 (87) 96 06/24/17 08:00 98.5 65 16 123/63 (83) 95 06/24/17 00:00 97.0 69 18 101/56 (71) 95 06/23/17 20:00 97.6 71 20 103/53 (70) 93 I/O 06/23/17 06/23/17 06/23/17 06/24/17 06/24/17 06/24/17 07:00 15:00 23:00 07:00 15:00 23:00 Intake Total 1440 ml 360 ml 100 ml Output Total 150 ml 700 ml 600 ml Balance -150 ml 740 ml -240 ml 100 ml Intake Oral 240 ml 360 ml IV Total 1200 ml 100 ml Output Urine Total 150 ml 700 ml 600 ml Stool Total 0 ml # Bowel Movements 0 Result Diagram: 06/24/17 0853 06/24/17 0853 Objective Remarks GENERAL: WN, WD elderly female laying comfortably in bed in NAD. SKIN: Warm and dry. HEENT: Pupils equal and round. MMM. NECK: Supple no tender LAD or JVD. HEART: RRR no m/r/g. LUNGS: CTAB without wheezes or crackles. ABDOMEN: Soft, NT, ND. Stoma pink. EXTREMITIES: No LE edema or calf tenderness. NEURO: Awake and alert. PSYCH: Appropriate mood and affect. A/P Problem List: (1) Rectal mass ICD Code: K62.9 - Disease of anus and rectum, unspecified Assessment and Plan Rectal mass Patient has a history of colorectal cancer 2-3 months of narrow bore stools, worsening 1 month of worsening rectal pain with inability to produce BM Recurrence of colorectal cancer is a very likely scenario Underwent ex lap 06/22 with stoma Appreciate colorectal surgery consult Encourage PO and advance diet Pain control D/C Flagyl as not suspected to be an infectious process Hypothyroidism History of thyroid cancer and total thyroidectomy Continue home Synthroid Deconditioning PT to eval and treat DVT Prophylaxis Lovenox FEN Advance diet IVF at 50 ml/hr Discharge Planning Anticipate D/C in a couple days pending ability to eat and clearance from colorectal surgery Mary Ann Griffin MD Jun 24, 2017 17:05
[2017-06-24] MEDS: ENOXAPARIN SODIUM 40 MG/0.4 ML SYRINGE SQ SCH (18:17)
[2017-06-24 20:00] VITALS: BP 112/56; PULSE 66; RESP 18; TEMP 97.3; O2SAT 97
[2017-06-25] VITALS: BP 111/56; PULSE 65; RESP 18; TEMP 97.4; O2SAT 98
[2017-06-25] MEDS: D5-NS + KCL 20 MEQ INJ 1,000 ML IV SCH ×2 (02:39→21:51)
[2017-06-25] MEDS: ACETAMINOPHEN/HYDROcodone 325 MG/5 MG TAB PO PRN ×3 (02:40→21:49)
[2017-06-25 08:00] VITALS: BP 124/61; PULSE 68; RESP 20; TEMP 96.9; O2SAT 96
[2017-06-25] MEDS: PANTOPRAZOLE SODIUM 40 MG VIAL IVP SCH (08:22)
[2017-06-25] MEDS: PANTOPRAZOLE SOD 40 MG DELAYED RELEASE TAB PO SCH (08:23)
[2017-06-25] MEDS: METOCLOPRAMIDE HCL 10 MG/2 ML VIAL IVS SCH (08:24)
--- NOTE | 2017-06-25 10:23 | HHI.FF ---
Face to Face Verification Diagnosis: (1) Rectal mass (2) Physical deconditioning Physical Therapy Order: Evaluate and Treat, Improve ambulation, Strength and gait training Home Health Nursing Order: Wound care and dressing changes Nursing assessment with vital signs I have seen patient Maria D Dennis on 06/25/17. My clinical findings support the need for the requested home health care services because: Deconditioned w/ increased weakness High risk of falls I certify that my clinical findings support that this patient is homebound because: Unsteady gait/balance Unsafe to leave home unassisted Mary Ann Griffin MD Jun 25, 2017 10:23
--- NOTE | 2017-06-25 10:24 | HHI.PR ---
Subjective Remarks Pt seen and examined. AFVSS. No acute events overnight. Patient resting in bed and states she is feeling a little better. Ambulated with PT. Tolerating PO without nausea or vomiting. Denies CP or SOB. Pain controlled. Objective Vitals Vital Signs Date Time Temp Pulse Resp B/P (MAP) Pulse Ox O2 Delivery O2 Flow Rate FiO2 06/25/17 08:00 96.9 68 20 124/61 (82) 96 06/25/17 00:00 97.4 65 18 111/56 (74) 98 06/24/17 20:00 97.3 66 18 112/56 (74) 97 06/24/17 12:00 97.3 63 17 125/68 (87) 96 I/O 06/24/17 06/24/17 06/24/17 06/25/17 06/25/17 06/25/17 07:00 15:00 23:00 07:00 15:00 23:00 Intake Total 360 ml 100 ml 240 ml 360 ml 240 ml Output Total 600 ml 300 ml 525 ml Balance -240 ml 100 ml -60 ml -165 ml 240 ml Intake Oral 360 ml 240 ml 360 ml 240 ml IV Total 100 ml Output Urine Total 600 ml 300 ml 500 ml Stool Total 0 ml 25 ml # Bowel Movements 0 Result Diagram: 06/24/17 0853 06/24/17 08 Objective Remarks GENERAL: WN, WD elderly female laying comfortably in bed in NAD. SKIN: Warm and dry. HEENT: Pupils equal and round. MMM. NECK: Supple no tender LAD or JVD. HEART: RRR no m/r/g. LUNGS: CTAB without wheezes or crackles. ABDOMEN: Soft, NT, ND. Stoma pink. EXTREMITIES: No LE edema or calf tenderness. NEURO: Awake and alert. PSYCH: Appropriate mood and affect. Procedures Flexible sigmoidoscopy with biopsies and laparoscopic-assisted loop colostomy A/P Problem List: (1) Rectal cancer ICD Code: C20 - Malignant neoplasm of rectum Assessment and Plan 71 YOWF with h/o colorectal cancer presented with 2-3 months of narrow stools and rectal pain. On CT imagine there was eccentric wall thickening with perirectal fat invasion in the low pelvis characteristic of neoplasm and likely a small contained perforation. Rectal mass Colorectal surgery consulted Underwent ex-lap 06/22 with stoma, doing well post-operatively Biopsies of mass pending No evidence of metastatic disease on CT scan Encourage PO Pain control Hypothyroidism History of thyroid cancer and total thyroidectomy Continue home Synthroid Deconditioning PT to eval and treat DVT Prophylaxis Lovenox FEN Advance diet IVF at 50 ml/hr Discharge Planning D/C pending clearance from colorectal surgery Mary Ann Griffin MD Jun 25, 2017 10:24
--- NOTE | 2017-06-25 11:26 | MP ---
cc: MT VELA M.D. DATE OF SURGERY: June 22, 2017 PREOPERATIVE DIAGNOSIS Perforated rectal cancer. PROCEDURE 1. Flexible sigmoidoscopy with biopsies. 2. Laparoscopic-assisted loop colostomy. POSTOPERATIVE DIAGNOSIS Rectal cancer with perforation. SURGEON Dr. Vela. GENERATOR WORKER Dr. Jordy Price. PROCEDURE The patient was placed in the supine position. After adequate general anesthesia her legs were placed in Scroggins stirrups and supported appropriately. The abdomen and perineum were then prepped with Betadine solution and draped in usual sterile fashion. Initially rectal exam was performed identifying cancer in the rectal vault, appeared to be perforated posteriorly. Olympus colonoscope was introduced into the rectum and advanced easily through the rectum into the rectosigmoid and left colon. The prep at this point was somewhat poor and the scope was gradually withdrawn noting inflammatory changes and appeared to be cancer in the rectum. Several biopsies of this tumor were obtained. Next, the abdomen was draped in the usual sterile fashion. With Dr. Price's assistance a small infraumbilical incision was made and a Veress needle inserted establishing pneumoperitoneum. A 5 mm trocar was then placed without difficulty under direct vision. Laparoscopy confirmed some adhesions with the omentum throughout the abdomen. These were taken down after placing a second 5 mm trocar in the suprapubic position in the midline. The sigmoid colon was mobilized medially by dividing along the white line of Toldt. There did appear to be enough laxity and looping to perform a sigmoid loop diverting colostomy. Therefore, after additional mobilization and some omental adhesions were taken down circular stab wound was created in the left lower abdomen, into the abdomen after splitting the rectus muscles, releasing the pneumoperitoneum. The loop of sigmoid colon was brought up through the stab wound without tension and with good blood supply getting an avascular plane in the mesentery and placing a colostomy bar. The trocar sites were then closed with interrupted Vicryl sutures. The colostomy was then matured by creating a transverse colotomy and maturing both proximal and distal limbs with interrupted Chromic catgut sutures around the circumference. At completion the stoma did appear to be patent. Red rubber catheter was placed distally and a distal washout was completed, releasing large amounts of fecal material from the anal canal. Sterile colostomy appliance finally fitted over the new stoma. The patient tolerated the procedure quite well and was brought to the recovery room in stable condition. Sponge and needle counts were correct at the end of the procedure. MD LINDA Flores/GERMÁN /5:03 PM /11:12 AM
[2017-06-25 12:00] VITALS: BP 117/62; PULSE 63; RESP 19; TEMP 96.9; O2SAT 97
--- NOTE | 2017-06-25 14:53 | PD.WCN.NOT ---
Wound Consult Description: Consult for NEW OSTOMY TEACHING per Dr Lemus Communicated with: Patient Recommendation: Release air from pouch as needed Empty pouch of effluent (stool) when 1/3-1/2 full Change wafer every 5-7 days and PRN Assess stoma (red or pink and moist) Additional Information: Patient seen on [address] [place] [address] for ostomy assessment and teaching. Ostomy Type: Colostomy (Loop) Surgeon: Tarun Lemus MD Date of Surgery: Jun 22, 2017 Complete: Starter kit (Consent obtained), Education materials (Left at bedside) Educated patient on: Appliances available Stoma color When to change appliance When to seek medical attention How to cleanse around stoma Additional information Patient seen on [place] for ostomy assessment and teaching with educational materials and practice appliances both in 2 piece and one piece brought to bedside for reference and demonstration purposes. Patient was assisted in calling a family member after obtaining the correct phone number from [facility]. Stoma is located on the left side abdomen. Loop Colostomy is red, oval, moist, edematous, moderately protruding, not functioning at this time, and noted with a bar in place. There is minimal sanguinous drainage noted in pouch that was not emptied at this time. Patient was shown how to release air from pouch and how to open and close the pouch at the bottom as well. Pouch was opened at the top and the stoma was visualized by advertising copywriter and patient. Verbal consent was obtained for patient to be sent a starter kit. Victoria Sheth Jun 25, 2017 14:53
[2017-06-25 16:00] VITALS: BP 130/61; PULSE 64; RESP 20; TEMP 97.8; O2SAT 95
[2017-06-25] MEDS: ENOXAPARIN SODIUM 40 MG/0.4 ML SYRINGE SQ SCH (16:59)
[2017-06-25] MEDS ORDERED: METOCLOPRAMIDE HCL 10 MG/2 ML VIAL IVS PRN (19:15)
[2017-06-25 20:00] VITALS: BP 159/71; PULSE 74; RESP 18; TEMP 98.3; O2SAT 99
--- NOTE | 2017-06-25 22:35 | HHI.PR ---
Subjective Remarks C/R Surg POD afebrile, VSS UO good artemio PO stoma little Objective - Vital Signs Date Time Temp Pulse Resp B/P (MAP) Pulse Ox O2 Delivery O2 Flow Rate FiO2 06/25/17 20:00 98.3 74 18 159/71 (100) 99 06/22/17 18:45 Room Air Result Diagram: 06/24/17 0853 06/24/17 0853 Objective Remarks PE alert Abd - soft, stoma pouched, min stool A/P Assessment and Plan Imp: doing well adv PO stoma teaching dc plans Tarun Lemus MD Jun 25, 2017 22:34
[2017-06-26] VITALS: BP 132/60; PULSE 75; RESP 18; TEMP 97; O2SAT 95
[2017-06-26] MEDS: ACETAMINOPHEN/HYDROcodone 325 MG/5 MG TAB PO PRN ×4 (04:33→21:04)
[2017-06-26 08:00] VITALS: BP 116/58; PULSE 73; RESP 19; TEMP 97.1; O2SAT 98
[2017-06-26] MEDS: PANTOPRAZOLE SODIUM 40 MG VIAL IVP SCH (09:00)
[2017-06-26 09:25] LABS: AUTOMATED NEUTROPHIL # 5.8 TH/MM3 (1.8-7.7); BASOPHIL % 0.3 % (0.0-2.0); EOSINOPHIL # 0.3 TH/MM3 (0-0.4); EOSINOPHIL % 3.5 % (0.0-4.0); HEMATOCRIT 29.3 % (35.0-46.0); LYMPH % 7.2 % (9.0-44.0); LYMPHOCYTE # 0.5 TH/MM3 (1.0-4.8); MEAN CELL VOLUME 87.8 FL (80.0-100.0); MEAN CORPUSCULAR HEMOGLOBIN 29.9 PG (27.0-34.0); MEAN CORPUSCULAR HGB CONC 34.1 % (32.0-36.0); MEAN PLATELET VOLUME 6.4 FL (7.0-11.0); MONO % 9.1 % (0.0-8.0); MONOCYTE # 0.7 TH/MM3 (0-0.9); NEUT % 79.9 % (16.0-70.0); PLATELET COUNT 349 TH/MM3 (150-450); RED BLOOD COUNT 3.33 MIL/MM3 (4.00-5.30); RED CELL DISTRIBUTION WIDTH 14.6 % (11.6-17.2); WHITE BLOOD COUNT 7.3 TH/MM3 (4.0-11.0)
[2017-06-26 09:49] LABS: BICARBONATE 27.2 MEQ/L (21.0-32.0); CALCIUM 8.1 MG/DL (8.5-10.1); CREATININE 0.55 MG/DL (0.50-1.00)
[2017-06-26] MEDS: PANTOPRAZOLE SOD 40 MG DELAYED RELEASE TAB PO SCH (10:46)
[2017-06-26 12:00] VITALS: BP 140/67; PULSE 69; RESP 20; TEMP 98.6; O2SAT 96
--- NOTE | 2017-06-26 15:23 | HHI.PR ---
Subjective Remarks RN states that patient did not eat well. Patient states her appetite is good. Denies cp/sob. Denies abdominal pain, nausea or vomiting. Objective Vitals Vital Signs Date Time Temp Pulse Resp B/P (MAP) Pulse Ox O2 Delivery O2 Flow Rate FiO2 06/26/17 12:00 98.6 69 20 140/67 (91) 96 06/26/17 08:00 97.1 73 19 116/58 (77) 98 06/26/17 00:00 97.0 75 18 132/60 (84) 95 06/25/17 20:00 98.3 74 18 159/71 (100) 99 06/25/17 16:00 97.8 64 20 130/61 (84) 95 I/O 06/25/17 06/25/17 06/25/17 06/26/17 06/26/17 06/26/17 06:59 14:59 22:59 06:59 14:59 22:59 Intake Total 360 ml 240 ml 1760 ml 120 ml Output Total 525 ml 500 ml Balance -165 ml 240 ml 1260 ml 120 ml Intake Oral 360 ml 240 ml 760 ml 120 ml IV Total 1000 ml Output Urine Total 500 ml 500 ml Stool Total 25 ml 0 ml # Bowel Movements 0 Result Diagram: 06/26/17 0829 06/26/17 0824 Objective Remarks GENERAL: WN, WD elderly female laying comfortably in bed in NAD. SKIN: Warm and dry. HEENT: Pupils equal and round. MMM. NECK: Supple no tender LAD or JVD. HEART: RRR no m/r/g. LUNGS: CTAB without wheezes or crackles. ABDOMEN: Soft, NT, ND. Stoma pink. EXTREMITIES: No LE edema or calf tenderness. NEURO: Awake and alert. PSYCH: Appropriate mood and affect. Procedures Flexible sigmoidoscopy with biopsies and laparoscopic-assisted loop colostomy Medications and IVs Current Medications Medications (Trade) Dose Ordered Sig/Nestor Route Start Time Stop Time Status Last Admin (Narcan Inj) 0.4 mg UNSCH PRN IV PUSH 06/21/17 16:00 (NS Flush) 2 ml UNSCH PRN IV FLUSH 06/21/17 16:00 06/22/17 03:29 (Ultram) 50 mg Q8H PRN PO 06/21/17 16:00 06/22/17 00:35 (Morphine Inj) 2 mg Q4H PRN IV PUSH 06/21/17 16:00 06/22/17 03:28 Potassium Chloride/Dextrose/ Sod Cl 1,000 ml @ 50 mls/hr Q20H IV 06/22/17 18:20 06/25/17 21:51 ([place] 5-325 Mg) 1 tab Q4H PRN PO 06/22/17 18:30 06/26/17 10:47 ([place] 5-325 Mg) 2 tab Q4H PRN PO 06/22/17 18:30 06/26/17 14:36 (Tylenol) 650 mg Q4H PRN PO 06/22/17 18:30 (Protonix Inj) 40 mg DAILY IVP 06/23/17 09:00 06/23/17 09:03 (Protonix) 40 mg DAILY PO 06/23/17 09:00 06/26/17 10:46 (Zofran Inj) 4 mg Q6H PRN IV PUSH 06/22/17 18:30 06/24/17 08:42 (Vasotec Inj) 1.25 mg Q4H PRN IV PUSH 06/22/17 18:30 (Vasotec Inj) 2.5 mg Q6H PRN IV PUSH 06/22/17 18:30 (Chloraseptic Tony) 1 lozenge UNSCH PRN BUCCAL 06/22/17 18:30 Potassium Chloride 100 ml @ 50 mls/hr UNSCH PRN IV 06/22/17 18:30 Potassium Chloride 100 ml @ 25 mls/hr UNSCH PRN IV 06/22/17 18:30 (Narcan Inj) 0.4 mg UNSCH PRN IV PUSH 06/22/17 18:30 (Lovenox Inj) 40 mg Q24H SQ 06/23/17 17:00 06/25/17 16:59 (Reglan Inj) 10 mg Q12HR PRN IVS 06/25/17 19:15 A/P Problem List: (1) Rectal cancer ICD Code: C20 - Malignant neoplasm of rectum Assessment and Plan 71 YOWF with h/o colorectal cancer presented with 2-3 months of narrow stools and rectal pain. On CT imagine there was eccentric wall thickening with perirectal fat invasion in the low pelvis characteristic of neoplasm and likely a small contained perforation. Rectal mass Colorectal surgery consulted Underwent ex-lap 06/22 with stoma, doing well post-operatively Biopsies of mass pending No evidence of metastatic disease on CT scan Encourage PO Pain control Hypothyroidism History of thyroid cancer and total thyroidectomy Continue home Synthroid Deconditioning PT to eval and treat Poor appetite Will start patient on Megace. Dysuria Patient complains of lower abdominal pain earlier today which was relieved after the patient was able to urinate. Unclear if the patient had dysuria or discomfort from a distended bladder. Will check urinalysis to rule out UTI. DVT Prophylaxis Lovenox FEN Advance diet IVF at 50 ml/hr Discharge Planning Discharge pending colorectal surgery clearance. Anthony Hendricks MD Jun 26, 2017 15:23
[2017-06-26 16:00] VITALS: BP 101/56; PULSE 74; RESP 20; TEMP 97.7; O2SAT 99
--- NOTE | 2017-06-26 17:06 | PD.WCN.NOT ---
Wound Consult Description: Consult for NEW OSTOMY TEACHING per Dr Lemus Communicated with: Patient Peyton (family) Recommendation: Release air from pouch as needed Empty pouch of effluent (stool) when 1/3-1/2 full Change wafer every 5-7 days and PRN Assess stoma (red or pink and moist, functioning with brown stool) Additional Information: Patient seen on [address] [place] [address] for ostomy assessment and teaching. Ostomy Type: Colostomy (Loop) Surgeon: Tarun Lemus MD Date of Surgery: Jun 22, 2017 Complete: Starter kit (Consent obtained. 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 Patient states she has some experience with them however will need assistance. Patient was educated on the need to change the pouching system every 5-7 days and PRN for leaks. After removal of thomas, patient will need appliance size 2 3/4". Loop colostomy with 4" cut to fit pouching system in place with bar. Patient demonstrates how to open and close pouch at the top to release air within the pouch. Patient and racebook writer visualized soft semi-formed brown stool on the proximal side of the loop colostomy. There is minimal brown liquid in pouch that was not emptied by racebook writer at this time. Supplies ordered for patient to be discharged with and for use once thomas is removed. Additional information Patient seen on [address] [place] [address] for ostomy assessment and teaching. Victoria Sheth [facility] Jun 26, 2017 17:06
[2017-06-26] MEDS: ENOXAPARIN SODIUM 40 MG/0.4 ML SYRINGE SQ SCH (18:03)
[2017-06-26] MEDS: D5-NS + KCL 20 MEQ INJ 1,000 ML IV SCH (18:59)
--- NOTE | 2017-06-26 20:24 | HHI.PR ---
Subjective Remarks C/R Surg POD afebrile, VSS UO good artemio PO stoma little output Objective - Vital Signs Date Time Temp Pulse Resp B/P (MAP) Pulse Ox O2 Delivery O2 Flow Rate FiO2 06/26/17 16:00 97.7 74 20 101/56 (71) 99 06/22/17 18:45 Room Air Result Diagram: 06/26/17 0829 06/26/17 0824 Objective Remarks PE alert Abd - soft, stoma pouched, min stool, min tympany A/P Assessment and Plan Imp: doing well adv PO stoma teaching dc plans, rehab? Tarun Lemus MD Jun 26, 2017 20:24
[2017-06-27] VITALS: BP 103/59; PULSE 75; RESP 18; TEMP 98.2; O2SAT 95
[2017-06-27] MEDS: ACETAMINOPHEN/HYDROcodone 325 MG/5 MG TAB PO PRN ×4 (01:04→14:21)
[2017-06-27 08:00] VITALS: BP 124/60; PULSE 65; RESP 17; TEMP 97.5; O2SAT 97
[2017-06-27] MEDS: PANTOPRAZOLE SODIUM 40 MG VIAL IVP SCH (09:06)
[2017-06-27] MEDS: PANTOPRAZOLE SOD 40 MG DELAYED RELEASE TAB PO SCH (09:06)
[2017-06-27 09:50] LABS: BACTERIA, URINE OCC /hpf; BILIRUBIN, URINE NEG (NEG); BLOOD, URINE SMALL (NEG); GLUCOSE,URINE NEG (NEG); KETONE, URINE NEG (NEG); MUCUS URINE FEW /lpf (OCC); NITRITE,URINE NEG (NEG); SQUAMOUS EPITHELIAL CELL URINE <1 /hpf (0-5); URINE COLOR LIGHT-YELLOW (YELLW/STRAW); URINE LEUKOCYTE ESTERASE LARGE (NEG)
[2017-06-27] MEDS ORDERED: HYDR-3516 PO (10:18)
[2017-06-27] MEDS ORDERED: DRONABINOL 5 MG CAP PO SCH (11:00)
[2017-06-27 12:00] VITALS: BP 141/78; PULSE 75; RESP 18; TEMP 97; O2SAT 98
[2017-06-27] MEDS: D5-NS + KCL 20 MEQ INJ 1,000 ML IV SCH (12:31)
[2017-06-27] MEDS ORDERED: DRON5CAP PO (14:08)
--- NOTE | 2017-06-27 14:10 | HHI.DS ---
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 Over the last months she has had increasing rectal pain which became worse today and was associated with an inability to produce a bowel movement. She denies fevers denies diarrhea. In the past she underwent radiation and chemotherapy for treatment of her colorectal cancer. Treatment was in [place]. She has a daughter Peyton whose phone number is [phone]. CBC/BMP: 06/26/17 0829 06/26/17 0824 Significant Findings Laboratory Tests Test 06/26/17 08:24 06/26/17 08:29 06/27/17 08:05 Blood Urea Nitrogen 5 MG/DL (7-18) Calcium Level 8.1 MG/DL (8.5-10.1) Red Blood Count 3.33 MIL/MM3 (4.00-5.30) Hemoglobin 10.0 GM/DL (11.6-15.3) Hematocrit 29.3 % (35.0-46.0) Mean Platelet Volume 6.4 FL (7.0-11.0) Neutrophils (%) (Auto) 79.9 % (16.0-70.0) Lymphocytes (%) (Auto) 7.2 % (9.0-44.0) Monocytes (%) (Auto) 9.1 % (0.0-8.0) Lymphocytes # (Auto) 0.5 TH/MM3 (1.0-4.8) Urine Turbidity HAZY (CLEAR) Urine Occult Blood SMALL (NEG) Urine Leukocyte Esterase LARGE (NEG) Urine RBC 6 /hpf (0-3) Urine WBC 151 /hpf (0-5) Urine Bacteria OCC /hpf (NONE) Urine Mucus FEW /lpf (OCC) Imaging Last Impressions Abdomen/Pelvis CT 06/21/17 1136 Signed Impressions: Service Date/Time: June 13:21 - CONCLUSION: Eccentric wall thickening with perirectal fat invasion in the low pelvis characteristic of neoplasm. Small air pocket with an air fluid level identified lateral to the lower rectum is characteristic of a small contained perforation. No evidence of local regional lymphadenopathy or distant metastatic disease. Status post cholecystectomy and hysterectomy. Filipe Reeves MD PE at Discharge PE alert Abd - soft, stoma pouched, min stool, min tympany Pt update on day of discharge Pain is controlled, patient is tolerating diet. Patient cleared by colorectal surgery to be discharged. Pt Condition on Discharge: Good Discharge Disposition: Discharge to SNF Discharge Time: > 30 minutes Discharge Instructions DIET: Follow Instructions for: As Tolerated, No Restrictions Activities you can perform: Regular-No Restrictions Activities to Avoid: Lifting/Bending, Strenuous Activity, Driving Follow up Referrals: Appointment for Follow Up - 2 Weeks with Tarun Lemus MD PCP Follow-up New Medications: Dronabinol (Dronabinol) 5 Mg Cap 5 MG PO BID@11,16 for poor appetite, #60 CAP Hydrocodone/Acetaminophen (Hydrocodone-Acetamin 5-325 mg) 5 Mg-325 Mg Tablet 2 TAB PO Q4H PRN for PAIN SCALE 5 TO 10 for 5 Days, #60 TAB 0 Refills Anthony Hendricks MD Jun 27, 2017 14:09
== END 2017-06-27 16:14 | DRG 331 ==
LOC: NEPE 10:55 → NEDA 14:57 → N07B 17:08
PROVIDERS: ADMIT Hospitalist; ATTEND Hospitalist
PROC: 0D1N0Z4 Bypass Sigmoid Colon to Cutaneous, Open Approach (ICD-10-PCS; principal; 2017-06-22 16:26)
PROC: 0DBP8ZX Excision of Rectum, Via Natural or Artificial Opening Endoscopic, Diagnostic (ICD-10-PCS; 2017-06-22 16:26)
DX: C20 Malignant neoplasm of rectum (principal); F03.90 Unspecified dementia, unspecified severity, without behavioral disturbance, psychotic disturbance, mood disturbance, and anxiety; E89.0 Postprocedural hypothyroidism; D72.829 Elevated white blood cell count, unspecified; Z85.048 Personal history of other malignant neoplasm of rectum, rectosigmoid junction, and anus; Z85.850 Personal history of malignant neoplasm of thyroid
CPT/HCPCS: 74177; 80048; 80053; 81001; 83605; 85025; 87086; 88305; 93005; 94150; 99285; C9113; J0690; J1100; J1650; J1885; J2250; J2270; J2370; J2405; J2710; J2765; J3010; J3480; J7030; Q9967

== ENCOUNTER 2017-09-04 08:53 | Inpatient (IN) | payer MEDICARE ==
[~2017-09-04] VITALS: Ht 170.2 cm; Wt 61.2 kg
[~2017-09-04 08:53] MED LIST: DRON5CAP PO; HYDR-3516 PO
[2017-09-04 12:00] VITALS: BP 109/54; PULSE 75; RESP 16; TEMP 97.8; O2SAT 99
[2017-09-04 14:32] LABS: AUTOMATED NEUTROPHIL # 7.8 TH/MM3 (1.8-7.7); BASOPHIL % 0.3 % (0.0-2.0); EOSINOPHIL % 0.3 % (0.0-4.0); HEMATOCRIT 31.9 % (35.0-46.0); HEMOGLOBIN 10.5 GM/DL (11.6-15.3); LYMPH % 5.2 % (9.0-44.0); LYMPHOCYTE # 0.5 TH/MM3 (1.0-4.8); MEAN CELL VOLUME 84.5 FL (80.0-100.0); MEAN CORPUSCULAR HEMOGLOBIN 27.9 PG (27.0-34.0); MONO % 8.4 % (0.0-8.0); MONOCYTE # 0.8 TH/MM3 (0-0.9); NEUT % 85.8 % (16.0-70.0); PLATELET COUNT 318 TH/MM3 (150-450); RED BLOOD COUNT 3.78 MIL/MM3 (4.00-5.30); RED CELL DISTRIBUTION WIDTH 14.9 % (11.6-17.2); WHITE BLOOD COUNT 9.2 TH/MM3 (4.0-11.0)
[2017-09-04 14:54] LABS: INTERNATIONAL NORMALIZED RATIO 1.1 RATIO
[2017-09-04 14:55] LABS: ALBUMIN 2.8 GM/DL (3.4-5.0); ALT (GPT) 8 U/L (10-53); AST (GOT) 9 U/L (15-37); BICARBONATE 30.3 MEQ/L (21.0-32.0); BLOOD UREA NITROGEN 8 MG/DL (7-18); CALCIUM 8.7 MG/DL (8.5-10.1); CHLORIDE 104 MEQ/L (98-107); CREATININE 0.59 MG/DL (0.50-1.00); GLOMERULAR FILTRATION RATE 100 ML/MIN (>89); GLUCOSE,RANDOM 97 MG/DL (74-106); SODIUM (NA) 141 MEQ/L (136-145)
[2017-09-04 14:58] LABS: ALKALINE PHOSPHATASE 89 U/L (45-117); TOTAL BILIRUBIN ADULT 0.3 MG/DL (0.2-1.0); TOTAL PROTEIN 6.9 GM/DL (6.4-8.2)
[2017-09-04] MEDS ORDERED: DIATRIZOATE MEGLUM/DIATRIZOATE SOD 9 ML CUP PO ONE (15:30)
[2017-09-04] MEDS: DEXT 5%-NACL 0.9% 1000 ML INJ 1,000 ML IV SCH (15:49)
[2017-09-04 16:00] VITALS: BP 108/54; PULSE 69; RESP 16; TEMP 98.2; O2SAT 96
[2017-09-04] MEDS ORDERED: metroNIDAZOLE 500 MG INJ 100 ML IV SCH (19:15)
[2017-09-04 20:00] VITALS: BP 148/65; PULSE 72; RESP 17; TEMP 98.6; O2SAT 99
[2017-09-04] MEDS ORDERED: PANTOPRAZOLE SODIUM 40 MG VIAL IV PUSH SCH (20:00)
--- NOTE | 2017-09-04 20:08 | RADRPT ---
EXAM DATE/TIME: 09/04/2017 19:36 [facility] COMPARISON: No previous studies available for comparison. INDICATIONS : Abdomen pain; evaluate rectal cancer. ORAL CONTRAST: Partial prescribed oral contrast ingested. RADIATION DOSE: 6.7 CTDIvol (mGy) MEDICAL HISTORY : Carcinoma, rectal. SURGICAL HISTORY : Colostomy. Hysterectomy.hip ENCOUNTER: Initial ACUITY: 1 day PAIN SCALE: 7/10 LOCATION: Bilateral abdomen TECHNIQUE: Volumetric scanning of the abdomen and pelvis was performed. Using automated exposure control and ad justment of the mA and/or kV according to patient size, radiation dose was kept as low as reasonably achievable to obtain optimal diagnostic quality images. DICOM format image data is available electro nically for review and comparison. FINDINGS: Lung bases are clear. No effusion. No acute findings in the liver, spleen, adrenals or pancreas. Previous cholecystectomy. Nonobstructin g 3 mm calcification lower pole right kidney. No hydronephrosis. There is a left lower quadrant colostomy with a parastomal hernia. Colonic diverticulosis is present. No posterior left rectal mass has increased in size slightly since June 21 exam measuring up to 6.5 cm in transverse diameter by 4.4 cm in oblique anterior diameter compared with previous measureme nts of 5.9 x 3.4 cm. There is previous screw fixation proximal left femur. CONCLUSION: 1. Increasing size of presacral mass on the left side although the mass does cross midline, compared with June 21. Measurements given above. There is a left lower quadrant ostomy with small parastom al hernia. 2. Nonobstructing small right renal calculus. Previous cholecystectomy. Linden Jimenez MD on September 04, 2017 at 19:58 Board Certified Radiologist. This report was verified electronically.
[2017-09-04] MEDS: traMADol HCL 50 MG TAB PO PRN (20:13)
--- NOTE | 2017-09-04 20:22 | RADRPT ---
EXAM DATE/TIME: 09/04/2017 19:47 [facility] COMPARISON: No previous studies available for comparison. INDICATIONS : Evaluate for pneumonia, pneumothorax or communicable disease. Pre-op for colon resection. MEDICAL HISTORY : Carcinoma, rectal. SURGICAL HISTORY : Hysterectomy. section. Colostomy. Cervical fusion. ENCOUNTER: Initial ACUITY: 1 day PAIN SCORE: 0/10 LOCATION: Bilateral chest FINDINGS: PA and lateral views of the chest demonstrate the lungs to be symmetrically aerated without evidence of mass, infiltrate or effusion. The cardiomediastinal contours are unremarkable. Osseous structure s are intact except remote left rib fractures.. CONCLUSION: 1. No active disease. Linden Jimenez MD on September 04, 2017 at 20:19 Board Certified Radiologist. This report was verified electronically.
[2017-09-04] MEDS ORDERED: traMADol HCL 50 MG TAB PO SCH (23:00)
[2017-09-05] VITALS (10 sets, daily range): BP systolic 108–154; BP diastolic 58–78; PULSE 71–103; RESP 17–20; TEMP 97.6–98.8; O2SAT 96–99
[2017-09-05] MEDS: traMADol HCL 50 MG TAB PO PRN ×2 (00:07→04:12)
[2017-09-05] MEDS ORDERED: LACTATED RINGER'S 1000 ML IV PRN ×2 (03:45→07:00)
[2017-09-05] MEDS: DEXT 5%-NACL 0.9% 1000 ML INJ 1,000 ML IV SCH (04:13)
[2017-09-05] MEDS ORDERED: ePHEDrine/NS 25 MG/5 ML SYRINGE IV ONE (12:00)
[2017-09-05] MEDS ORDERED: NORMOSOL R INJ 1,000 ML IV ONE (12:00)
[2017-09-05] MEDS ORDERED: NEOSTIGMINE 5 MG/5 ML SYRINGE IV PUSH ONE (12:00)
[2017-09-05] MEDS ORDERED: DEXAMETHASONE SOD PHOS 4 MG/ML VIAL IV ONE (12:00)
[2017-09-05] MEDS ORDERED: ROCURONIUM INJ 50 MG/5 ML SYRINGE IV PUSH ONE (12:00)
[2017-09-05] MEDS ORDERED: GLYCOPYRROLATE 1 MG/5 ML SYRINGE IV PUSH ONE (12:00)
[2017-09-05] MEDS ORDERED: LIDOCAINE HCL 1% PF 5 ML SYRINGE OTHER ONE (12:00)
[2017-09-05] MEDS ORDERED: PROPOFOL 200 MG/20 ML AMP IV ONE (12:00)
[2017-09-05] MEDS ORDERED: ONDANSETRON HCL 4 MG/2 ML VIAL IV ONE (12:00)
[2017-09-05] MEDS ORDERED: PHENYLEPH/NS 1000 MCG/10 ML SYR IV ONE (12:00)
--- NOTE | 2017-09-05 12:08 | PD.HP.UP ---
H&P Update Note The Pre-Admit History and Physical Examination regarding the above named patient was reviewed (including, but not limited to, vital signs, heart, lungs, co-morbid conditions), and upon re-examination it is noted that: the patient's condition has not significantly changed since the last examination. Tarun Lemus MD September 05, 2017 12:08
[2017-09-05] MEDS ORDERED: ceFAZolin INJ 1,000 MG VIAL ONE (13:03)
--- NOTE | 2017-09-05 14:08 | MP ---
cc: Juice Casper DO DATE OF OPERATION: PREOPERATIVE DIAGNOSIS: Rectal cancer. POSTOPERATIVE DIAGNOSIS: Rectal cancer. PROCEDURE PERFORMED: Cystoscopy with bilateral ureteral catheter insertion. SURGEON: Juice Casper MD ANESTHESIA: General endotracheal tube. FLUIDS: 500 mL crystalloid. ESTIMATED BLOOD LOSS: No blood loss. COMPLICATIONS: No complications. INDICATIONS FOR PROCEDURE: Ms. Dennis is a 72-year-old female with recurrent rectal cancer, who elected to undergo ex-lap by Dr. Lemus and requests were made for bilateral ureteral catheter insertion. PROCEDURE: The patient was brought to the operating room and placed in dorsal lithotomy position, she had received preprocedure antibiotics and general endotracheal tube anesthesia was administered. She was prepped and draped in usual sterile fashion. A 22-Singaporean cystoscope was inserted in the bladder. Pancystoscopy did not reveal any abnormalities. Left ureteral orifice was identified and a 5-Singaporean open-ended catheter was inserted up the left ureter without difficulty. This was again repeated on the right side. The Lundberg was inserted and the catheters were attached to the Lundberg. She tolerated the procedure well. Juice Casper DO SWT/TL , 01:53 PM , 02:06 PM
[2017-09-05] MEDS ORDERED: SUGAMMADEX SODIUM 200 MG/2 ML VIAL IV PUSH ONE (15:03)
[2017-09-05] MEDS ORDERED: NALOXONE HCL 0.4 MG/ML AMP ONE (15:24)
[2017-09-05] MEDS ORDERED: BENZOCAINE 6 MG/MENTHOL 10 MG LOZENGE BUCCAL PRN (15:30)
[2017-09-05] MEDS ORDERED: ONDANSETRON HCL 4 MG/2 ML VIAL IV PUSH PRN (15:30)
[2017-09-05] MEDS ORDERED: POTASSIUM CHLOR 40 MEQ PREMIX 100 ML IV PRN (15:30)
[2017-09-05] MEDS ORDERED: NALOXONE HCL 0.4 MG/ML AMP IV PUSH PRN (15:30)
[2017-09-05] MEDS ORDERED: ACETAMINOPHEN 325 MG TAB PO PRN (15:30)
[2017-09-05] MEDS ORDERED: POTASSIUM CHLOR 20 MEQ PREMIX 100 ML IV PRN (15:30)
[2017-09-05] MEDS ORDERED: ENALAPRILAT 1.25 MG/ML VIAL IV PUSH PRN (15:30)
[2017-09-05] MEDS ORDERED: Post-op Orders (for Pharmacy) XX ONE (15:30)
[2017-09-05] MEDS ORDERED: ENALAPRILAT 2.5 MG/2 ML VIAL IV PUSH PRN (15:30)
[2017-09-05] MEDS ORDERED: ACETAMINOPHEN/HYDROcodone 325 MG/5 MG TAB PO PRN (15:30)
[2017-09-05] MEDS ORDERED: DO NOT ADM ANY ANTICOAGULANT DRUGS PRN ×2 (15:35→15:49)
[2017-09-05] MEDS ORDERED: MORPHINE SULFATE 4 MG/ML INJ ONE (15:47)
[2017-09-05] MEDS ORDERED: *ONDANSETRON 4 MG VIAL PERIprocedural Use ONLY ONE (16:06)
[2017-09-05] MEDS: D5-NS + KCL 20 MEQ INJ 1,000 ML IV SCH ×2 (16:25→22:03)
[2017-09-05 16:44] LABS: HEMATOCRIT 34.9 % (35.0-46.0); HEMOGLOBIN 11.4 GM/DL (11.6-15.3)
[2017-09-05] MEDS: MORPHINE SULFATE 30 MG/30 ML PCA IV SCH (17:37)
[2017-09-05] MEDS: KETOROLAC TROMETHAMINE 30 MG/ML (IVP) VIAL IVP PRN (18:35)
[2017-09-05] MEDS: METOCLOPRAMIDE HCL 10 MG/2 ML VIAL IVS SCH (20:50)
[2017-09-05] MEDS: metroNIDAZOLE 500 MG INJ 100 ML IV SCH (20:51)
[2017-09-05] MEDS: PCA - TOTAL MG MORPHINE DELIVERED PER SHIFT SCH ×2 (22:00→22:33)
[2017-09-06] VITALS (19 sets, daily range): BP systolic 94–124; BP diastolic 48–57; PULSE 85–138; RESP 16–20; TEMP 97.7–98.6; O2SAT 94–97
[2017-09-06] MEDS: D5-NS + KCL 20 MEQ INJ 1,000 ML IV SCH ×4 (04:29→21:23)
[2017-09-06 05:11] LABS: AUTOMATED NEUTROPHIL # 19.9 TH/MM3 (1.8-7.7); BASOPHIL % 0.1 % (0.0-2.0); HEMATOCRIT 27.9 % (35.0-46.0); LYMPH % 1.3 % (9.0-44.0); LYMPHOCYTE # 0.3 TH/MM3 (1.0-4.8); MEAN CELL VOLUME 85.2 FL (80.0-100.0); MEAN CORPUSCULAR HEMOGLOBIN 27.5 PG (27.0-34.0); MEAN CORPUSCULAR HGB CONC 32.3 % (32.0-36.0); MEAN PLATELET VOLUME 8.4 FL (7.0-11.0); MONO % 4.6 % (0.0-8.0); PLATELET COUNT 392 TH/MM3 (150-450); RED BLOOD COUNT 3.28 MIL/MM3 (4.00-5.30); RED CELL DISTRIBUTION WIDTH 14.9 % (11.6-17.2); WHITE BLOOD COUNT 21.2 TH/MM3 (4.0-11.0)
[2017-09-06 05:36] LABS: BICARBONATE 24.9 MEQ/L (21.0-32.0); CALCIUM 7.7 MG/DL (8.5-10.1); CREATININE 0.73 MG/DL (0.50-1.00)
[2017-09-06] MEDS: metroNIDAZOLE 500 MG INJ 100 ML IV SCH ×3 (05:55→21:10)
[2017-09-06] MEDS: PCA - TOTAL MG MORPHINE DELIVERED PER SHIFT SCH ×3 (06:00→21:11)
--- NOTE | 2017-09-06 07:25 | HHI.PR ---
Subjective Remarks C/R Surg POD #1 afebrile, VSS UO adeq VINCENZO min Objective - Vital Signs Date Time Temp Pulse Resp B/P (MAP) Pulse Ox O2 Delivery O2 Flow Rate FiO2 09/06/17 06:17 102 09/06/17 06:00 19 09/06/17 03:16 97.7 124/57 (79) 94 09/05/17 17:15 Nasal Cannula 2 Result Diagram: 09/06/17 0440 09/06/17 0440 Objective Remarks PE alert Abd - soft, wound dry, stoma pink A/P Assessment and Plan Imp: stable post-op OOB decr IVF one stent dc'd tx to floor Tarun Lemus MD September 06, 2017 07:25
--- NOTE | 2017-09-06 08:23 | MP ---
cc: Tarun Lemus MD DATE OF OPERATION: DATE OF PROCEDURE: 09/05/2017. PREOPERATIVE DIAGNOSIS: Perforated rectal cancer. PROCEDURE: Exploratory laparotomy with abdominal perineal resection and omental flap. POSTOPERATIVE DIAGNOSIS: Perforated rectal cancer. SURGEON: Dr. Lemus. RITUAL CIRCUMCISER: Dr. Yair Freeman. PROCEDURE: The patient was placed in the supine position. After adequate general anesthesia, legs were placed in the universal stirrups and supported appropriately. The abdomen and perineum were then prepped with Betadine solution and draped in the usual sterile fashion. With Dr. Freeman's assistance, the abdomen was opened through a midline incision. Exploration revealed a large tumor in the pelvis with induration and radiation change affecting the rectosigmoid. Tumor was fairly advanced with some fixation posteriorly and induration along the cul-de-sac. The proximal colon was palpated very carefully and felt to be pretty unremarkable. Liver had no palpable masses. The gallbladder had been previously removed. The stomach and duodenum were normal. The uterus had been previously removed. Both ovaries appeared to be appropriate for the patient's age. The great vessels were of normal caliber and only mildly calcified. First, the sigmoid colon was mobilized medially by dividing along the white line of Toldt. The left ureteral stent was palpated and carefully preserved. Dissection then proceeded, opening up the right retroperitoneal space and freeing the bowel off the presacral fascia. Dissection then proceeded down to the pelvis entering a large cavity posteriorly which appeared to be the perforated rectal cancer. A large amount of tumor was removed from the presacral space. Dissection then proceeded laterally, freeing up the lateral stalks with electrocautery and blunt dissection. After it appeared that our resection was going to be possible, the pedicle for the superior hemorrhoidal vessels was identified and divided between Kellys obtaining hemostasis with Vicryl ties. The mesentery was then further divided up toward the colostomy and the bowel divided just distal to the colostomy using the CANDIDO stapling device. Dissection then proceeded down to the pelvis, freeing up the cul-de-sac, and developing a plane between the anterior rectum and the posterior vagina. A tumor adherence to the posterior vagina was encountered and the vagina was entered. A plane developed below this area further freeing up the rectum down to the pelvic floor. There was gross tumor both sides of the rectum. After reaching the pelvic floor, Dr. Freeman went to the perineal aspect of the patient and completed the proctectomy making an elliptical incision around the anus and dissecting through the ischiorectal spaces dividing the attachments to the pelvic floor and removing the specimen through the perineal wound. Rather lengthy debridement was then undertaken to remove all gross tumor from the presacral space and the lateral rectal stalks, actually getting a fairly good debridement. The remaining rind was cauterized with electrocautery for additional hemostasis. After completion, the pelvis was irrigated copiously with normal saline. Dr. Freeman closed the pelvic floor with interrupted Vicryl sutures and loosely closed the skin with interrupted subcuticular Vicryl sutures and leeroy for the skin. Next, the omental flap was created by taking the omentum off the transverse colon and having to free it off the greater curvature of the stomach, taking some of the gastroepiploic vessels. After full mobilization the omentum did seem to reach the pelvis and filled the pelvic cavity. Tommie-Tobias drain was placed down into the pelvis and brought up through a stab wound in the right lower quadrant, secured to the skin with a nylon suture. The midline incision was then closed anatomically reapproximating the midline fascia with a running #1 PDS suture. The subcutaneous tissue was irrigated copiously and the skin closed with a running subcuticular Vicryl suture. Wound area washed with normal saline and dried, sterile dressing of Telfa and gauze applied. The patient tolerated the procedure quite well and was brought to the recovery room in stable condition. Sponge and needle counts were correct at the end of the procedure. Tarun Lemus MD AHR/TL , 08:00 AM , 08:23 AM
[2017-09-06] MEDS: PANTOPRAZOLE SODIUM 40 MG VIAL IVP SCH (09:00)
[2017-09-06] MEDS: METOCLOPRAMIDE HCL 10 MG/2 ML VIAL IVS SCH ×2 (09:09→21:08)
[2017-09-06] MEDS: FUROSEMIDE 20 MG/2 ML VIAL IV PUSH SCH ×2 (09:09→21:09)
[2017-09-06] MEDS: KETOROLAC TROMETHAMINE 30 MG/ML (IVP) VIAL IVP PRN (09:09)
[2017-09-06] MEDS: PANTOPRAZOLE SOD 40 MG DELAYED RELEASE TAB PO SCH (09:10)
[2017-09-06] MEDS: MORPHINE SULFATE 30 MG/30 ML PCA IV SCH (09:28)
[2017-09-06] MEDS ORDERED: HETASTARCH 6%/LACTAT LYTES INJ 500 ML IV ONE (10:00)
--- NOTE | 2017-09-06 12:39 | PD.WCN.NOT ---
Wound Consult Description: Consult for NEW OSTOMY TEACHING per Dr Lemus Communicated with: Patient Patient family member at bedside (Peyton) Recommendation: Remove ostomy pouching system, using adhesive remover wipes, every 5-7 days and PRN for leaking. Empty pouch when 1/3-1/2 full of effluent. 'Measure stoma with template from ostomy kit in room. Cut wafer to fit snuggly against stoma. Cleanse peristomal skin with water only and pat dry. Use a skin prep such as Cavilon skin barrier film if desired. Apply wafer over/around stoma. Attach the pouch and close the end tightly. Additional Information: Patient seen on for ostomy assessment and teaching. Ostomy Type: Colostomy Surgeon: Tarun Lemus MD Date of Surgery: Jun 22, 2017 Complete: Starter kit, Education materials, Rx Educated patient on: Leaving the pouching system on for 5 days and emptying it as needed. Additional information Patient seen today on [facility] for ostomy assessment and teaching. Patient is known to entry writer from previous admission. Stoma is pink, moist, moderately protruding, functioning with soft brown effluent noted in pouch that was not emptied at this time. This is not a new ostomy, however patient does need reinforcement of teaching. Patient family member Peyton, entered room during assessment and teaching and stated that the patient will be leaving and going home with hospice or to the care center on discharge. An appliance was ordered for patients next appliance change, picked up from [facility], and left in room at the bedside. Appliance on patient at this time is noted to be intact without leaks. Victoria Sheth [facility] September 06, 2017 12:39
[2017-09-06] MEDS: traMADol HCL 50 MG TAB PO PRN (21:09)
[2017-09-06] MEDS: ALVIMOPAN 12 MG CAPSULE PO SCH (21:09)
[2017-09-07] VITALS (7 sets, daily range): BP systolic 113–144; BP diastolic 55–69; PULSE 91–127; RESP 16–20; TEMP 97.3–98; O2SAT 94–99
[2017-09-07] MEDS: traMADol HCL 50 MG TAB PO PRN (05:21)
[2017-09-07] MEDS: metroNIDAZOLE 500 MG INJ 100 ML IV SCH ×3 (05:22→21:45)
[2017-09-07] MEDS: D5-NS + KCL 20 MEQ INJ 1,000 ML IV SCH ×2 (05:23→17:41)
[2017-09-07] MEDS: PCA - TOTAL MG MORPHINE DELIVERED PER SHIFT SCH ×3 (05:35→21:50)
[2017-09-07 07:19] LABS: AUTOMATED NEUTROPHIL # 14.4 TH/MM3 (1.8-7.7); BASOPHIL % 0.1 % (0.0-2.0); EOSINOPHIL # 0.2 TH/MM3 (0-0.4); EOSINOPHIL % 1.1 % (0.0-4.0); LYMPH % 1.9 % (9.0-44.0); LYMPHOCYTE # 0.3 TH/MM3 (1.0-4.8); MEAN CORPUSCULAR HEMOGLOBIN 27.9 PG (27.0-34.0); MEAN CORPUSCULAR HGB CONC 32.5 % (32.0-36.0); MEAN PLATELET VOLUME 8.3 FL (7.0-11.0); MONO % 6.5 % (0.0-8.0); NEUT % 90.4 % (16.0-70.0); PLATELET COUNT 293 TH/MM3 (150-450); RED BLOOD COUNT 2.27 MIL/MM3 (4.00-5.30); RED CELL DISTRIBUTION WIDTH 14.9 % (11.6-17.2)
[2017-09-07 07:31] LABS: HEMATOCRIT 19.5 % (35.0-46.0); HEMOGLOBIN 6.3 GM/DL (11.6-15.3)
[2017-09-07 07:41] LABS: BICARBONATE 22.9 MEQ/L (21.0-32.0); CALCIUM 7.9 MG/DL (8.5-10.1); CREATININE 0.76 MG/DL (0.50-1.00)
[2017-09-07] MEDS: PANTOPRAZOLE SOD 40 MG DELAYED RELEASE TAB PO SCH (08:07)
[2017-09-07] MEDS: FUROSEMIDE 20 MG/2 ML VIAL IV PUSH SCH ×2 (08:39→21:46)
[2017-09-07] MEDS: PANTOPRAZOLE SODIUM 40 MG VIAL IVP SCH (08:41)
[2017-09-07] MEDS: ALVIMOPAN 12 MG CAPSULE PO SCH ×2 (08:43→21:47)
[2017-09-07] MEDS: METOCLOPRAMIDE HCL 10 MG/2 ML VIAL IVS SCH ×2 (08:43→21:49)
[2017-09-07] MEDS: KETOROLAC TROMETHAMINE 30 MG/ML (IVP) VIAL IVP PRN ×3 (08:44→21:51)
--- NOTE | 2017-09-07 12:07 | PD.WCN.NOT ---
Wound Consult Description: Consult for NEW OSTOMY TEACHING per Dr Lemus Communicated with: Patient Recommendation: Remove ostomy pouching system, using adhesive remover wipes, every 5-7 days and PRN for leaking. Empty pouch when 1/3-1/2 full of effluent. Measure stoma with template from ostomy kit in room. Cut 2 1/4" wafer to fit snuggly against stoma. Cleanse peristomal skin with water only and pat dry. Use a skin prep such as Cavilon skin barrier film if desired. Apply wafer over/around stoma. Attach the pouch and close the end tightly. Additional Information: Patient seen on for ostomy assessment and teaching. Patient states " pain in my ass". Patient was positioned to her left side for assessment. Brief was pulled to the side for assessment of buttocks, rectum, and sacral areas. [place] noted to be intact to rectum and communicated to patient who states "oh I keep forgetting about those being there, that's why it hurts". All areas of buttocks and sacrum are intact skin with no erythema noted. Patient was encouraged to stay on her side for comfort with her pillow placed between her knees as well. Ostomy Type: Colostomy Surgeon: Tarun Lemus MD Date of Surgery: Jun 22, 2017 Complete: Education materials Educated patient on: Introduced self to patient and explained plan for ostomy visualization and teaching. Additional information Ostomy is located on her left side, pink, moist, moderately protruding, does not appear to be functioning at this time, no stool is noted in pouch. 2 1/" appliance is intact. Victoria Sheth [facility] September 07, 2017 12:06
--- NOTE | 2017-09-07 17:05 | PQ ---
Physician Query Response Document PATIENT: YASMEEN FERNÁNDEZ : 1945 ADMIT DATE: 09/05/2017 3:36 PM DISCH DATE: RESPONDING PROVIDER #: behaview QUERY TEXT: CDS Clarification Acute posthemorrhagic anemia in the setting of a drop in Hgb/Hct from 11.4/34.5 to 6.3/19.5 treated w ith transfusions Other explanation of clinical findings. Unable to determine (no explanation for clinical findings). The patient's Clinical Indicators include: The medical record reflects the following clinical findings, treatment, and risk factors. * Clinical Indicators: drop in Hgb/Hct from 11.4/34.5 to 6.3/19.5 * Risk Factors: s/p Exploratory laparotomy with abdominal perineal resection and omental flap * Treatment: IVF, transfusion of packed cells, vital sign monitoring Please clarify and document your clinical opinion in the progress notes and discharge summary includi ng the definitive and/or presumptive diagnosis (suspected or probable), related to the above clinical findings. Please include clinical findings supporting your diagnosis. Thank you, Lety Scott : CDS/RN ext. [phone] Query created by: Lety Scott on 09/07/2017 2:56 PM RESPONSE TEXT: Provider disagreed with this CDI query. Electronically signed by: Tarun Lemus MD 09/07/2017 5:02 PM
--- NOTE | 2017-09-07 17:33 | HHI.PR ---
Subjective Remarks C/R Surg POD #2 afebrile, VSS UO adeq VICNENZO min Objective - Vital Signs Date Time Temp Pulse Resp B/P (MAP) Pulse Ox O2 Delivery O2 Flow Rate FiO2 09/07/17 15:12 98.0 99 134/60 94 09/07/17 14:48 17 09/05/17 17:15 Nasal Cannula 2 Result Diagram: 09/07/17 0611 09/07/17 0611 Objective Remarks PE alert Abd - soft, wound dry, stoma pink, VINCENZO min Hgb dropped A/P Assessment and Plan Imp: OOB decr IVF tx PRBC PT Tarun Lemus MD September 07, 2017 17:33
[2017-09-07] MEDS: MORPHINE SULFATE 30 MG/30 ML PCA IV SCH (18:29)
[2017-09-08] VITALS: BP 149/69; PULSE 86; RESP 20; TEMP 97.6; O2SAT 94
[2017-09-08] MEDS: D5-NS + KCL 20 MEQ INJ 1,000 ML IV SCH ×4 (00:28→19:36)
[2017-09-08 04:00] VITALS: BP 156/72; PULSE 85; RESP 20; TEMP 97.9; O2SAT 96
[2017-09-08] MEDS: KETOROLAC TROMETHAMINE 30 MG/ML (IVP) VIAL IVP PRN ×2 (05:39→13:08)
[2017-09-08] MEDS: metroNIDAZOLE 500 MG INJ 100 ML IV SCH ×3 (05:39→19:35)
[2017-09-08] MEDS: PCA - TOTAL MG MORPHINE DELIVERED PER SHIFT SCH (05:46)
[2017-09-08 07:42] LABS: AUTOMATED NEUTROPHIL # 10.1 TH/MM3 (1.8-7.7); BASOPHIL % 0.1 % (0.0-2.0); EOSINOPHIL # 0.4 TH/MM3 (0-0.4); EOSINOPHIL % 3.7 % (0.0-4.0); HEMATOCRIT 24.3 % (35.0-46.0); HEMOGLOBIN 8.3 GM/DL (11.6-15.3); LYMPH % 3.5 % (9.0-44.0); LYMPHOCYTE # 0.4 TH/MM3 (1.0-4.8); MEAN CELL VOLUME 85.2 FL (80.0-100.0); MEAN CORPUSCULAR HEMOGLOBIN 29.3 PG (27.0-34.0); MEAN CORPUSCULAR HGB CONC 34.4 % (32.0-36.0); MONO % 6.4 % (0.0-8.0); MONOCYTE # 0.7 TH/MM3 (0-0.9); NEUT % 86.3 % (16.0-70.0); PLATELET COUNT 280 TH/MM3 (150-450); RED BLOOD COUNT 2.85 MIL/MM3 (4.00-5.30); RED CELL DISTRIBUTION WIDTH 14.7 % (11.6-17.2); WHITE BLOOD COUNT 11.7 TH/MM3 (4.0-11.0)
[2017-09-08 08:00] VITALS: BP 153/70; PULSE 83; RESP 17; TEMP 97.6; O2SAT 90
[2017-09-08 08:15] LABS: BICARBONATE 23.6 MEQ/L (21.0-32.0); CALCIUM 7.7 MG/DL (8.5-10.1); CREATININE 0.6 MG/DL (0.50-1.00)
[2017-09-08] MEDS: PANTOPRAZOLE SODIUM 40 MG VIAL IVP SCH (09:00)
[2017-09-08] MEDS: METOCLOPRAMIDE HCL 10 MG/2 ML VIAL IVS SCH (09:08)
[2017-09-08] MEDS: FUROSEMIDE 20 MG/2 ML VIAL IV PUSH SCH ×2 (09:08→19:34)
[2017-09-08] MEDS: ALVIMOPAN 12 MG CAPSULE PO SCH ×2 (09:09→19:35)
[2017-09-08] MEDS: PANTOPRAZOLE SOD 40 MG DELAYED RELEASE TAB PO SCH (09:09)
[2017-09-08 12:00] VITALS: BP 155/76; PULSE 84; RESP 17; TEMP 97.6; O2SAT 94
[2017-09-08] MEDS ORDERED: METOCLOPRAMIDE HCL 10 MG/2 ML VIAL IVS PRN (12:15)
[2017-09-08 16:00] VITALS: BP_SYST 156; PULSE 84; RESP 18; TEMP 97.9; O2SAT 95
[2017-09-08] MEDS: ACETAMINOPHEN/HYDROcodone 325 MG/5 MG TAB PO PRN ×2 (16:28→23:13)
[2017-09-08] MEDS: traMADol HCL 50 MG TAB PO PRN (19:35)
[2017-09-08 20:00] VITALS: BP 161/73; PULSE 83; RESP 18; TEMP 97.8; O2SAT 95
[2017-09-09] VITALS (10 sets, daily range): BP systolic 118–159; BP diastolic 68–83; PULSE 67–175; RESP 18; TEMP 97.5–97.8; O2SAT 95–99
[2017-09-09] MEDS: ACETAMINOPHEN/HYDROcodone 325 MG/5 MG TAB PO PRN ×5 (03:00→21:59)
[2017-09-09] MEDS: traMADol HCL 50 MG TAB PO PRN ×3 (05:18→23:34)
[2017-09-09] MEDS: metroNIDAZOLE 500 MG INJ 100 ML IV SCH ×2 (05:18→13:40)
[2017-09-09 08:03] LABS: AUTOMATED NEUTROPHIL # 8.4 TH/MM3 (1.8-7.7); BASOPHIL % 0.5 % (0.0-2.0); EOSINOPHIL # 0.5 TH/MM3 (0-0.4); EOSINOPHIL % 4.6 % (0.0-4.0); HEMATOCRIT 29.3 % (35.0-46.0); HEMOGLOBIN 9.9 GM/DL (11.6-15.3); LYMPH % 3.8 % (9.0-44.0); LYMPHOCYTE # 0.4 TH/MM3 (1.0-4.8); MEAN CELL VOLUME 84.1 FL (80.0-100.0); MEAN CORPUSCULAR HEMOGLOBIN 28.4 PG (27.0-34.0); MEAN CORPUSCULAR HGB CONC 33.8 % (32.0-36.0); MEAN PLATELET VOLUME 8.3 FL (7.0-11.0); MONO % 8.4 % (0.0-8.0); MONOCYTE # 0.9 TH/MM3 (0-0.9); NEUT % 82.7 % (16.0-70.0); PLATELET COUNT 324 TH/MM3 (150-450); RED BLOOD COUNT 3.49 MIL/MM3 (4.00-5.30); WHITE BLOOD COUNT 10.2 TH/MM3 (4.0-11.0)
[2017-09-09] MEDS: PANTOPRAZOLE SOD 40 MG DELAYED RELEASE TAB PO SCH (08:45)
[2017-09-09] MEDS: PANTOPRAZOLE SODIUM 40 MG VIAL IVP SCH (08:45)
[2017-09-09] MEDS: ALVIMOPAN 12 MG CAPSULE PO SCH ×2 (08:45→21:19)
[2017-09-09] MEDS: FUROSEMIDE 20 MG/2 ML VIAL IV PUSH SCH ×2 (08:46→21:20)
--- NOTE | 2017-09-09 08:49 | HHI.PR ---
Subjective Remarks C/R Surg POD #4 afebrile, VSS UO adeq VINCENZO min draining from perineum Objective - Vital Signs Date Time Temp Pulse Resp B/P (MAP) Pulse Ox O2 Delivery O2 Flow Rate FiO2 09/09/17 00:00 97.8 79 18 155/77 (103) 95 09/05/17 17:15 Nasal Cannula 2 Result Diagram: 09/09/17 0636 09/08/17 0726 Objective Remarks PE alert Abd - soft, wound dry, stoma pink, VINCENZO min Hgb better A/P Assessment and Plan Imp: OOB decr IVF PT Hospice consult - ?rehab Tarun Lemus MD September 09, 2017 08:49
[2017-09-09] MEDS: D5-NS + KCL 20 MEQ INJ 1,000 ML IV SCH ×2 (11:17→21:25)
[2017-09-09] MEDS ORDERED: ADENOSINE IV SOLN 3 MG/ML 2 ML VIAL ONE (19:55)
[2017-09-09] MEDS ORDERED: ADENOSINE IV SOLN 3 MG/ML 2 ML VIAL IV PUSH PRN (20:00)
[2017-09-09] MEDS ORDERED: ADENOSINE IV SOLN 3 MG/ML 2 ML VIAL IV PUSH ONE (20:00)
[2017-09-09] MEDS ORDERED: METOPROLOL TARTRATE 5 MG/5 ML VIAL IV PUSH SCH (20:15)
--- NOTE | 2017-09-09 20:43 | HHI.PR ---
Addendum to Inpatient Note Addendum Reason: Additional Documentation Additional Information S: Resident team called by call center at 19:38 for Fabi in room 1519. Fabi was called for tachycardia up to the 170s. Patient denied any chest pain, shortness of breath, dizziness, syncope, diaphoresis. She reported that she felt a little warm but otherwise felt well/normal. O: Vitals: Pulse 169-174, blood pressure 143/76, pulse ox of 95% on room air, which increased to 100% on nonrebreather, afebrile General: Pleasant woman in no acute distress HEENT: Strabismus/exotropia, poor dentition with missing teeth, dry mucous membranes Cardiovascular: Tachycardic rate but regular rhythm Respiratory: Clear to auscultation bilaterally GI: Soft, nontender, nondistended, VINCENZO drain in right lower abdomen draining serosanguineous fluid, midline leeroy c/d/i, left sided ostomy Extremities: Hands warm and well perfused, legs nontender and nonedematous, IV in right AC Neuro: Alert and oriented 2, which reportedly is her baseline A/P: 72-year-old woman postop day 4 after ex-lap in the context of rectal cancer had Fabi called for tachycardia to the 170s. -Ordered stat EKG which showed supraventricular tachycardia with a ventricular rate of 167, narrow QRS complex of 84 ms -Ordered troponin -Attempted vagal maneuvers with Valsalva 2, blowing through straw 2, carotid massage 2, eating ice chips, none of which were successful -Adenosine 6 mg IV push seemed to resolve tachycardia. After administration of adenosine, the following vitals were noted: Blood pressure 144/80, pulse rate of 94, oxygen saturation of 100% on nonrebreather -Patient transferred to [facility] -Patient's nurse called Dr. Lemus as well as the patient's daughter -Consider cardiology consult for new onset SVT Mark Tao MD R2 September 09, 2017 20:43
[2017-09-10] VITALS (27 sets, daily range): BP systolic 123–149; BP diastolic 74–82; PULSE 62–86; RESP 16–18; TEMP 97.6–98.2; O2SAT 95–97
[2017-09-10 06:34] LABS: AUTOMATED NEUTROPHIL # 7.7 TH/MM3 (1.8-7.7); BASOPHIL % 0.3 % (0.0-2.0); EOSINOPHIL # 0.5 TH/MM3 (0-0.4); EOSINOPHIL % 4.8 % (0.0-4.0); HEMATOCRIT 31.8 % (35.0-46.0); HEMOGLOBIN 10.7 GM/DL (11.6-15.3); LYMPH % 4.7 % (9.0-44.0); LYMPHOCYTE # 0.4 TH/MM3 (1.0-4.8); MEAN CELL VOLUME 85.2 FL (80.0-100.0); MEAN CORPUSCULAR HEMOGLOBIN 28.7 PG (27.0-34.0); MEAN CORPUSCULAR HGB CONC 33.7 % (32.0-36.0); MEAN PLATELET VOLUME 7.8 FL (7.0-11.0); MONO % 8.6 % (0.0-8.0); MONOCYTE # 0.8 TH/MM3 (0-0.9); NEUT % 81.6 % (16.0-70.0); PLATELET COUNT 325 TH/MM3 (150-450); RED BLOOD COUNT 3.73 MIL/MM3 (4.00-5.30); RED CELL DISTRIBUTION WIDTH 15.3 % (11.6-17.2); WHITE BLOOD COUNT 9.5 TH/MM3 (4.0-11.0)
[2017-09-10 07:03] LABS: ALBUMIN 1.8 GM/DL (3.4-5.0); AST (GOT) 10 U/L (15-37); BICARBONATE 27.5 MEQ/L (21.0-32.0); BLOOD UREA NITROGEN 11 MG/DL (7-18); CALCIUM 7.8 MG/DL (8.5-10.1); CHLORIDE 105 MEQ/L (98-107); CREATININE 0.59 MG/DL (0.50-1.00); GLOMERULAR FILTRATION RATE 100 ML/MIN (>89); GLUCOSE,RANDOM 75 MG/DL (74-106); SODIUM (NA) 142 MEQ/L (136-145)
[2017-09-10 07:05] LABS: ALT (GPT) LESS THAN 6 U/L (10-53)
[2017-09-10 07:14] LABS: ALKALINE PHOSPHATASE 84 U/L (45-117); TOTAL BILIRUBIN ADULT 0.3 MG/DL (0.2-1.0)
[2017-09-10] MEDS ORDERED: ADENOSINE IV SOLN 3 MG/ML 2 ML VIAL ONE ×2 (07:14)
[2017-09-10] MEDS ORDERED: METOPROLOL TARTRATE 5 MG/5 ML VIAL ONE (07:20)
--- NOTE | 2017-09-10 07:40 | HHI.PR ---
Addendum to Inpatient Note Addendum Reason: Additional Documentation Additional Information S: Fabi Beauregard overhead at 7:14 a.m. Brennon was called for tachycardia in the same patient I saw before. Again, patient denies any complaints. O: Vitals: Pulse 169, blood pressure initially 120s over 80s before administration of adenosine Gen: Pleasant elderly woman in no acute distress CV: Tachycardic rate and regular rhythm See previous physical exam from my last inpatient addendum note. A/P: Initial EKG was read as atrial flutter with uncontrolled ventricular response with 2-1 AV block with a ventricular rate of 165. However it appeared regular, so I immediately instructed the soldering technician to get another EKG which was read as probable supraventricular tachycardia with a rate of 167. Because adenosine worked last time, we decided to use adenosine again this time. -Adenosine 6 mg IV push -After administration of adenosine, pulse in the 90s, blood pressure 136/77 -Consider cardiology consult or initiation of rate control medication Mark Tao MD R2 September 10, 2017 07:40
[2017-09-10] MEDS: ALVIMOPAN 12 MG CAPSULE PO SCH ×2 (08:55→21:07)
[2017-09-10] MEDS: PANTOPRAZOLE SOD 40 MG DELAYED RELEASE TAB PO SCH (08:55)
[2017-09-10] MEDS: FUROSEMIDE 20 MG/2 ML VIAL IV PUSH SCH ×2 (08:55→21:08)
[2017-09-10] MEDS: PANTOPRAZOLE SODIUM 40 MG VIAL IVP SCH ×2 (08:56→09:00)
--- NOTE | 2017-09-10 09:25 | PD.CONS ---
HPI Service Cardiology Consult Requested By Dr. Lemus Reason for Consult SVT Primary Care Physician Non-Staff History of Present Illness This is a pleasant 72 year old female who developed SVT last night and this AM. She denies any cardiac history, and reports that her only medical issues are with her rectum/abdomen, has colon cancer. She originally came in for an exploratory laparotomy following several months of progressively more narrow stool, rectal pain, and inability to produce a BM. In the past she has underwent chemo and radiation for her colorectal cancer. She recently had a significant drop in her Hgb to 6.3 and received 2 units PRBCs. This morning she denies any chest pain, SOB, or dizziness. She reports that when she went into SVT she might have felt a little flutter in her chest but did not think it was anything significant. (Rosalind Fletcher) Review of Systems Consitutional: COMPLAINS OF: Fatigue, Weight loss Eyes: DENIES: Amaurosis Fugax, Change in vision HEENT: DENIES: Lightheadedness, Change in hearing Respiratory: DENIES: See HPI, Cough, Snoring, Shortness of breath, Wheezing, Sputum production Cardiovascular: COMPLAINS OF: Palpitations, DENIES: See HPI, Chest pain, Syncope, Tachycardia Gastrointestinal: COMPLAINS OF: Change in bowel habits, DENIES: Vomiting, Reflux, Bloody stools, Melena Genitourinary: DENIES: Urinary incontinence, Difficulty voiding Integumentary: DENIES: Rash Neurologic: DENIES: Tingling or numbness, Memory problems, Poor Balance, Stroke symptoms Musculoskeletal: DENIES: Joint pain, Muscle pain, Limited range of motion, Back pain Psychiatric: DENIES: Anxiety, Depression, Sleep disturbances Hematologic: DENIES: Bruising tendencies, Bleeding tendencies Endocrine: COMPLAINS OF: Weight loss (Rosalind Fletcher) Past Family Social History Allergies: Coded Allergies: No Known Allergies (Unverified , 06/21/17) Past Medical History Colorectal cancer Thyroid cancer Hypothyroidism Early dementia Past Surgical History Thyroidectomy x3 Reported Medications Reported Meds & Active Scripts Active Dronabinol 5 Mg Cap 5 Mg PO BID@11,16 Hydrocodone-Acetamin 5-325 mg (Hydrocodone/Acetaminophen) 5 Mg-325 Mg Tablet 2 Tab PO Q4H PRN 5 Days Active Ordered Medications Current Medications Medications (Trade) Dose Ordered Sig/Nestor Route Start Time Stop Time Status Last Admin (Ultram) 50 mg Q8H PRN PO 09/04/17 18:45 09/09/17 23:34 Potassium Chloride/Dextrose/ Sod Cl 1,000 ml @ 70 mls/hr [id number] IV 09/05/17 15:29 09/08/17 19:36 ([place] 5-325 Mg) 1 tab Q4H PRN PO 09/05/17 15:30 ([place] 5-325 Mg) 2 tab Q4H PRN PO 09/05/17 15:30 09/09/17 21:59 (Tylenol) 650 mg Q4H PRN PO 09/05/17 15:30 (Entereg) 12 mg BID PO 09/06/17 21:00 09/13/17 09:01 09/10/17 08:55 (Protonix Inj) 40 mg DAILY IVP 09/06/17 09:00 09/07/17 08:41 (Protonix) 40 mg DAILY PO 09/06/17 09:00 09/10/17 08:55 (Zofran Inj) 4 mg Q6H PRN IV PUSH 09/05/17 15:30 09/09/17 11:23 (Vasotec Inj) 1.25 mg Q4H PRN IV PUSH 09/05/17 15:30 (Vasotec Inj) 2.5 mg Q6H PRN IV PUSH 09/05/17 15:30 (Chloraseptic Tony) 1 lozenge UNSCH PRN BUCCAL 09/05/17 15:30 Potassium Chloride 100 ml @ 50 mls/hr UNSCH PRN IV 09/05/17 15:30 Potassium Chloride 100 ml @ 25 mls/hr UNSCH PRN IV 09/05/17 15:30 (Lasix Inj) 10 mg Q12HR IV PUSH 09/06/17 09:00 09/10/17 08:55 (Reglan Inj) 10 mg Q12HR PRN IVS 09/08/17 12:15 Family History Grandmother-stomach cancer Uncle and father- GI cancer Social History Denies tobacco or alcohol use (Rosalind Fletcher) Physical Exam Vital Signs Vital Signs Date Time Temp Pulse Resp B/P (MAP) Pulse Ox O2 Delivery O2 Flow Rate FiO2 09/10/17 07:01 77 09/10/17 06:00 66 09/10/17 05:00 68 09/10/17 04:00 74 09/10/17 04:00 81 16 130/80 (97) 95 09/10/17 03:00 75 09/10/17 02:00 70 09/10/17 01:06 15.00 100 09/10/17 01:00 76 09/10/17 00:00 72 09/09/17 23:30 97.7 87 18 123/68 (86) 95 09/09/17 23:00 77 09/09/17 22:00 86 09/09/17 21:00 84 09/09/17 20:30 67 09/09/17 19:35 97.5 175 18 118/74 (89) 95 09/09/17 16:00 97.6 83 18 139/68 (91) 99 09/09/17 12:00 97.6 81 18 149/83 (105) 97 Physical Exam GENERAL: Elderly, frail female SKIN: Warm and dry. HEAD: Atraumatic. Normocephalic. EYES: No injection or drainage. ENT: No nasal bleeding or discharge. Mucous membranes pink and moist. NECK: Trachea midline. No JVD. CARDIOVASCULAR: Regular rate and rhythm. RESPIRATORY: No accessory muscle use. Clear to auscultation. Breath sounds equal bilaterally. GASTROINTESTINAL: Large abdominal incision, VINCENZO drain in place, ostomy in place. MUSCULOSKELETAL: Extremities without clubbing, cyanosis, or edema. No obvious deformities. NEUROLOGICAL: Awake and alert. No obvious cranial nerve deficits. Motor grossly within normal limits. Five out of 5 muscle strength in the arms and legs. Normal speech. PSYCHIATRIC: Appropriate mood and affect; insight and judgment normal. Laboratory Laboratory Tests Test 09/09/17 21:05 09/10/17 05:16 Troponin I 0.18 White Blood Count 9.5 Red Blood Count 3.73 Hemoglobin 10.7 Hematocrit 31.8 Mean Corpuscular Volume 85.2 Mean Corpuscular Hemoglobin 28.7 Mean Corpuscular Hemoglobin Concent 33.7 Red Cell Distribution Width 15.3 Platelet Count 325 Mean Platelet Volume 7.8 Neutrophils (%) (Auto) 81.6 Lymphocytes (%) (Auto) 4.7 Monocytes (%) (Auto) 8.6 Eosinophils (%) (Auto) 4.8 Basophils (%) (Auto) 0.3 Neutrophils # (Auto) 7.7 Lymphocytes # (Auto) 0.4 Monocytes # (Auto) 0.8 Eosinophils # (Auto) 0.5 Basophils # (Auto) 0.0 CBC Comment DIFF FINAL Differential Comment Blood Urea Nitrogen 11 Creatinine 0.59 Random Glucose 75 Total Protein 5.0 Albumin 1.8 Calcium Level 7.8 Alkaline Phosphatase 84 Aspartate Amino Transf (AST/SGOT) 10 Alanine Aminotransferase (ALT/SGPT) LESS THAN 6 Total Bilirubin 0.3 Sodium Level 142 Potassium Level 3.7 Chloride Level 105 Carbon Dioxide Level 27.5 Anion Gap 10 Estimat Glomerular Filtration Rate 100 Thyroid Stimulating Hormone 3rd Gen 2.570 (Shadeed,August Jenny [employer] WORK[employer]) Result Diagram: 09/10/17 0516 09/10/17 0516 Course Allergies Coded Allergies Type Severity Reaction Last Updated Verified No Known Allergies 06/21/17 No 09/08/17 09/08/17 09/09/17 09/09/17 09/10/17 09/10/17 05:59 17:59 05:59 17:59 05:59 17:59 Intake Total 1700 ml 1380 ml 1820 ml 440 ml 720 ml Output Total 900 ml 1100 ml 2710 ml 400 ml 1930 ml Balance 800 ml 280 ml -890 ml 40 ml -1210 ml Intake Oral 0 ml 480 ml 720 ml 240 ml 720 ml IV Total 1300 ml 900 ml 1100 ml 200 ml Packed Cells 400 ml Output Urine Total 900 ml 1000 ml 2500 ml 400 ml 1800 ml Stool Total 0 ml 50 ml Drainage Total 100 ml 210 ml 80 ml # Voids 6 # Bowel Movements 0 Laboratory Tests Test 09/08/17 07:26 09/09/17 06:36 09/09/17 21:05 09/10/17 05:16 White Blood Count 11.7 TH/MM3 10.2 TH/MM3 9.5 TH/MM3 Red Blood Count 2.85 MIL/MM3 3.49 MIL/MM3 3.73 MIL/MM3 Hemoglobin 8.3 GM/DL 9.9 GM/DL 10.7 GM/DL Hematocrit 24.3 % 29.3 % 31.8 % Mean Corpuscular Volume 85.2 FL 84.1 FL 85.2 FL Mean Corpuscular Hemoglobin 29.3 PG 28.4 PG 28.7 PG Mean Corpuscular Hemoglobin Concent 34.4 % 33.8 % 33.7 % Red Cell Distribution Width 14.7 % 15.0 % 15.3 % Platelet Count 280 TH/MM3 324 TH/MM3 325 TH/MM3 Mean Platelet Volume 8.0 FL 8.3 FL 7.8 FL Neutrophils (%) (Auto) 86.3 % 82.7 % 81.6 % Lymphocytes (%) (Auto) 3.5 % 3.8 % 4.7 % Monocytes (%) (Auto) 6.4 % 8.4 % 8.6 % Eosinophils (%) (Auto) 3.7 % 4.6 % 4.8 % Basophils (%) (Auto) 0.1 % 0.5 % 0.3 % Neutrophils # (Auto) 10.1 TH/MM3 8.4 TH/MM3 7.7 TH/MM3 Lymphocytes # (Auto) 0.4 TH/MM3 0.4 TH/MM3 0.4 TH/MM3 Monocytes # (Auto) 0.7 TH/MM3 0.9 TH/MM3 0.8 TH/MM3 Eosinophils # (Auto) 0.4 TH/MM3 0.5 TH/MM3 0.5 TH/MM3 Basophils # (Auto) 0.0 TH/MM3 0.0 TH/MM3 0.0 TH/MM3 CBC Comment DIFF FINAL DIFF FINAL DIFF FINAL Differential Comment Blood Urea Nitrogen 11 MG/DL 11 MG/DL Creatinine 0.60 MG/DL 0.59 MG/DL Random Glucose 113 MG/DL 75 MG/DL Calcium Level 7.7 MG/DL 7.8 MG/DL Sodium Level 146 MEQ/L 142 MEQ/L Potassium Level 4.0 MEQ/L 3.7 MEQ/L Chloride Level 115 MEQ/L 105 MEQ/L Carbon Dioxide Level 23.6 MEQ/L 27.5 MEQ/L Anion Gap 7 MEQ/L 10 MEQ/L Estimat Glomerular Filtration Rate 98 ML/MIN 100 ML/MIN Troponin I 0.18 NG/ML Total Protein 5.0 GM/DL Albumin 1.8 GM/DL Alkaline Phosphatase 84 U/L Aspartate Amino Transf (AST/SGOT) 10 U/L Alanine Aminotransferase (ALT/SGPT) LESS THAN 6 U/L Total Bilirubin 0.3 MG/DL Thyroid Stimulating Hormone 3rd Gen 2.570 uIU/ML Orders Procedure Category Date Status Time Red Blood Cells (Rbc) [facility] 09/07/17 Complete 12:07 Type And Screen BBK 09/07/17 Complete 12:07 (Hub Use Only)Inp Phy CONS 09/07/17 Transmitted Cons/Ref Activity Oob Ad Radha STEFANY 09/07/17 In Process 17:22 Complete Blood Count LAB 09/08/17 Complete With Diff 06:00 Basic Metabolic Panel LAB 09/08/17 Complete (Bmp) 06:00 Metoclopramide Inj MED 09/08/17 In Process (Reglan Inj) 12:15 Diet Regular Basic DIET 09/08/17 Transmitted Lunch Hospice Consult CONS 09/08/17 Transmitted 12:03 Cap,Shampoo/Cond SPD 09/08/17 Logged Rinse Free Ea 14:06 Complete Blood Count LAB 09/09/17 Complete With Diff 06:00 Case Management CONS 09/09/17 Transmitted Consult Electrocardiogram CAV 09/09/17 Complete Troponin I LAB 09/09/17 Complete 19:51 Patient Transfer ADMITTING 09/09/17 Transmitted Adenosine Inj MED 09/09/17 Complete (Adenocard Inj) 19:55 Adenosine Inj MED 09/09/17 Complete (Adenocard Inj) 20:00 Adenosine Inj MED 09/09/17 Complete (Adenocard Inj) 20:00 Metoprolol Tartrate MED 09/09/17 Complete Inj (Lopressor Inj) 20:15 Complete Blood Count LAB 09/10/17 Complete With Diff 06:00 Comprehensive LAB 09/10/17 Complete Metabolic Panel 06:00 Thyroid Stimulating LAB 09/10/17 Complete Hormone 06:00 Adenosine Inj MED 09/10/17 Complete (Adenocard Inj) 07:14 Adenosine Inj MED 09/10/17 Complete (Adenocard Inj) 07:14 Metoprolol Tartrate MED 09/10/17 Complete Inj (Lopressor Inj) 07:20 Consult Cardiology CONS 09/10/17 Transmitted (Hub Use Only)Inp Phy CONS 09/10/17 Transmitted Cons/Ref Metoprolol Tartrate MED 09/10/17 In Process (Lopressor) 09:15 Vital Signs Date Time Temp Pulse Resp B/P (MAP) Pulse Ox O2 Delivery O2 Flow Rate FiO2 09/10/17 07:01 77 09/10/17 06:00 66 09/10/17 05:00 68 09/10/17 04:00 74 09/10/17 04:00 81 16 130/80 (97) 95 09/10/17 03:00 75 09/10/17 02:00 70 09/10/17 01:06 15.00 100 09/10/17 01:00 76 09/10/17 00:00 72 09/09/17 23:30 97.7 87 18 123/68 (86) 95 09/09/17 23:00 77 09/09/17 22:00 86 09/09/17 21:00 84 09/09/17 20:30 67 09/09/17 19:35 97.5 175 18 118/74 (89) 95 09/09/17 16:00 97.6 83 18 139/68 (91) 99 09/09/17 12:00 97.6 81 18 149/83 (105) 97 09/09/17 08:00 97.7 80 18 159/80 (106) 96 09/09/17 00:00 97.8 79 18 155/77 (103) 95 09/08/17 20:00 97.8 83 18 161/73 (102) 95 09/08/17 16:00 97.9 84 18 156/ 95 09/08/17 12:00 97.6 84 17 155/76 (102) 94 09/08/17 08:00 97.6 83 17 153/70 (97) 90 09/08/17 05:46 18 09/08/17 04:00 97.9 85 20 156/72 (100) 96 09/08/17 00:00 97.6 86 20 149/69 (95) 94 09/07/17 21:50 18 09/07/17 20:00 97.9 91 20 144/69 (94) 97 09/07/17 17:36 98.0 99 16 134/60 94 09/07/17 15:12 98.0 99 134/60 94 09/07/17 14:48 97.6 96 17 118/59 99 09/07/17 12:00 97.3 95 17 130/60 (83) 95 (Rosalind Fletcher) Assessment and Plan Problem List: (1) SVT (supraventricular tachycardia) ICD Codes: I47.1 - Supraventricular tachycardia Status: Acute Plan: Patient has had 2 episodes of asymptomatic SVT where she converted with Adenosine. Will start on Metoprolol tartrate 25mg BID. (2) Rectal cancer ICD Codes: C20 - Malignant neoplasm of rectum Plan: Recent exploratory laparotomy, known colorectal cancer. Being managed by Dr. Lemus. Discussed Condition With Gregory GUZMAN The patient was seen and evaluated by Dr. Horn who completed face to face encounter and physical exam, and participated in care, management, and decision making. (Rosalind Fletcher) Assessment and Plan The exam, history, and the medical decision-making described in the above note were completed with the assistance of the mid-level provider. I reviewed and agree with the findings presented. I attest that I had a [id number] encounter with the patient on the same day, and personally performed and documented my assessment and findings in the medical record. Will treat SVT medically given pts poor prognosis with rectal cancer (Jodi Horn MD) Rosalind Fletcher September 10, 2017 09:25 Jodi Horn MD September 10, 2017 14:59
[2017-09-10] MEDS: ACETAMINOPHEN/HYDROcodone 325 MG/5 MG TAB PO PRN ×3 (10:10→21:50)
[2017-09-10] MEDS: METOPROLOL TARTRATE 25 MG TAB PO SCH ×2 (10:10→21:08)
[2017-09-10] MEDS: D5-NS + KCL 20 MEQ INJ 1,000 ML IV SCH ×2 (15:53→21:15)
--- NOTE | 2017-09-10 22:32 | HHI.PR ---
Subjective Remarks C/R Surg POD #5 afebrile, VSS - HR to 170 UO adeq VINCENZO min draining from perineum less Objective - Vital Signs Date Time Temp Pulse Resp B/P (MAP) Pulse Ox O2 Delivery O2 Flow Rate FiO2 09/10/17 18:00 66 09/10/17 15:15 97.9 18 123/74 (90) 96 09/10/17 01:06 15.00 100 Result Diagram: 09/10/17 0516 09/10/17 0516 Objective Remarks PE alert Abd - soft, wound dry, stoma pink, VINCENZO min Tx adenosine A/P Assessment and Plan Imp: OOB decr IVF PT Hospice consult - ?rehab cariology consult noted Tarun Lemus MD September 10, 2017 22:32
[2017-09-11] VITALS (20 sets, daily range): BP systolic 114–143; BP diastolic 60–83; PULSE 58–85; RESP 16–18; TEMP 97.5–98.4; O2SAT 94–97
[2017-09-11] MEDS: ACETAMINOPHEN/HYDROcodone 325 MG/5 MG TAB PO PRN ×4 (01:45→17:45)
[2017-09-11] MEDS: D5-NS + KCL 20 MEQ INJ 1,000 ML IV SCH ×2 (02:58→10:13)
[2017-09-11 07:07] LABS: BICARBONATE 29.7 MEQ/L (21.0-32.0); CALCIUM 7.7 MG/DL (8.5-10.1); CREATININE 0.59 MG/DL (0.50-1.00)
[2017-09-11] MEDS: PANTOPRAZOLE SODIUM 40 MG VIAL IVP SCH (09:00)
[2017-09-11] MEDS: ALVIMOPAN 12 MG CAPSULE PO SCH (09:26)
[2017-09-11] MEDS: METOPROLOL TARTRATE 25 MG TAB PO SCH (09:26)
[2017-09-11] MEDS: PANTOPRAZOLE SOD 40 MG DELAYED RELEASE TAB PO SCH (09:26)
[2017-09-11] MEDS: FUROSEMIDE 20 MG/2 ML VIAL IV PUSH SCH (09:27)
[2017-09-11] MEDS ORDERED: POTASSIUM CHLORIDE 20 MEQ CONTROLLED RELEASE TAB PO ONE (09:30)
--- NOTE | 2017-09-11 10:03 | PD.CARD.PN ---
Subjective Subjective Remarks Frail, pale, elderly female lying in bed. Reports having a lot of rectal pain. She denies any chest pain, SOB, dizziness or palpitations. She states she has not been able to eat much but has been sipping on ensure. (Rosalind Fletcher) Objective Medications Current Medications Medications (Trade) Dose Ordered Sig/Nestor Route Start Time Stop Time Status Last Admin (Ultram) 50 mg Q8H PRN PO 09/04/17 18:45 09/09/17 23:34 Potassium Chloride/Dextrose/ Sod Cl 1,000 ml @ 50 mls/hr Q20H IV 09/05/17 15:29 09/08/17 19:36 ([place] 5-325 Mg) 1 tab Q4H PRN PO 09/05/17 15:30 ([place] 5-325 Mg) 2 tab Q4H PRN PO 09/05/17 15:30 09/11/17 07:28 (Tylenol) 650 mg Q4H PRN PO 09/05/17 15:30 (Entereg) 12 mg BID PO 09/06/17 21:00 09/13/17 09:01 09/11/17 09:26 (Protonix Inj) 40 mg DAILY IVP 09/06/17 09:00 09/07/17 08:41 (Protonix) 40 mg DAILY PO 09/06/17 09:00 09/11/17 09:26 (Zofran Inj) 4 mg Q6H PRN IV PUSH 09/05/17 15:30 09/09/17 11:23 (Vasotec Inj) 1.25 mg Q4H PRN IV PUSH 09/05/17 15:30 (Vasotec Inj) 2.5 mg Q6H PRN IV PUSH 09/05/17 15:30 (Chloraseptic Tony) 1 lozenge UNSCH PRN BUCCAL 09/05/17 15:30 Potassium Chloride 100 ml @ 50 mls/hr UNSCH PRN IV 09/05/17 15:30 Potassium Chloride 100 ml @ 25 mls/hr UNSCH PRN IV 09/05/17 15:30 (Lasix Inj) 10 mg Q12HR IV PUSH 09/06/17 09:00 09/11/17 09:27 (Reglan Inj) 10 mg Q12HR PRN IVS 09/08/17 12:15 (Lopressor) 25 mg Q12HR PO 09/10/17 09:15 09/11/17 09:26 Vital Signs / I&O Vital Signs Date Time Temp Pulse Resp B/P (MAP) Pulse Ox O2 Delivery O2 Flow Rate FiO2 09/11/17 08:48 18 09/11/17 06:00 71 09/11/17 05:00 61 09/11/17 04:00 70 09/11/17 03:45 98.4 64 16 132/75 (94) 94 09/11/17 03:00 60 09/11/17 02:00 66 09/11/17 01:00 70 09/11/17 00:00 98.2 85 18 143/83 (103) 97 09/11/17 00:00 85 09/10/17 23:00 62 09/10/17 22:00 78 09/10/17 21:00 68 09/10/17 20:00 98.2 72 18 149/75 (99) 95 09/10/17 20:00 66 09/10/17 19:00 66 09/10/17 18:00 66 09/10/17 17:00 68 09/10/17 16:00 68 09/10/17 15:15 97.9 72 18 123/74 (90) 96 09/10/17 15:01 65 09/10/17 14:00 70 09/10/17 13:00 76 09/10/17 12:01 74 09/10/17 11:01 97.7 80 18 140/81 (100) 97 09/10/17 11:00 86 09/10/17 10:00 78 I/O 09/10/17 09/10/17 09/10/17 09/11/17 09/11/17 09/11/17 07:00 15:00 23:00 07:00 15:00 23:00 Intake Total 240 ml 720 ml 460 ml Output Total 540 ml 700 ml 400 ml Balance -300 ml 20 ml 60 ml Intake Oral 240 ml 720 ml 460 ml Output Urine Total 500 ml 700 ml 400 ml Stool Total 0 ml Drainage Total 40 ml # Bowel Movements 1 Physical Exam GENERAL: Elderly, frail, pale SKIN: Warm and dry. HEAD: Normocephalic. EYES: No scleral icterus. No injection or drainage. NECK: Supple, trachea midline. No JVD or lymphadenopathy. CARDIOVASCULAR: Regular rate and rhythm without murmurs, gallops, or rubs. RESPIRATORY: Breath sounds equal bilaterally. No accessory muscle use. GASTROINTESTINAL: large abdomianl incision, ostomy MUSCULOSKELETAL: No cyanosis, or edema. BACK: Nontender without obvious deformity. No CVA tenderness Laboratory Laboratory Tests Test 09/11/17 05:21 Blood Urea Nitrogen 14 MG/DL Creatinine 0.59 MG/DL Random Glucose 92 MG/DL Calcium Level 7.7 MG/DL Sodium Level 142 MEQ/L Potassium Level 3.4 MEQ/L Chloride Level 103 MEQ/L Carbon Dioxide Level 29.7 MEQ/L Anion Gap 9 MEQ/L Estimat Glomerular Filtration Rate 100 ML/MIN Thyroid Stimulating Hormone 3rd Gen 5.130 uIU/ML (Rosalind Fletcher) Assessment and Plan Problem List: (1) SVT (supraventricular tachycardia) ICD Codes: I47.1 - Supraventricular tachycardia Status: Acute Plan: Had NSVT and asymptomatic narrow complex tachycardia overnight. Will increase metoprolol to 50mg PO BID. Potassium is low-replacement ordered. The patient is stable from a cardiac standpoint for discharge to rehab. Will continue to follow as outpatient. Hospital follow up in 2 weeks. The patient was seen and evaluated by Emily Horn who completed face to face encounter physical exam, and participated in management and decision making. (2) Rectal cancer ICD Codes: C20 - Malignant neoplasm of rectum Plan: Status post exploratory laparotomy. Following with Dr. Lemus. (Rosalind Fletcher) Assessment and Plan The exam, history, and the medical decision-making described in the above note were completed with the assistance of the mid-level provider. I reviewed and agree with the findings presented. I attest that I had a [id number] encounter with the patient on the same day, and personally performed and documented my assessment and findings in the medical record. Mange medically with betablocker, discussed with Dr Lemus. (Jodi Horn MD) Rosalind Fletcher September 11, 2017 10:03 Jodi Horn MD September 11, 2017 14:59
--- NOTE | 2017-09-11 14:37 | PD.WCN.NOT ---
Wound Consult Description: Consult for NEW OSTOMY TEACHING per Dr Lemus Communicated with: Patient Recommendation: Remove ostomy pouching system, using adhesive remover wipes, every 5-7 days and PRN for leaking. Empty pouch when 1/3-1/2 full of effluent. Measure stoma with template from ostomy kit in room. Cut 2 1/4" wafer to fit snuggly against stoma. Cleanse peristomal skin with water only and pat dry. Use a skin prep such as Cavilon skin barrier film if desired. Apply wafer over/around stoma. Attach the pouch and close the end tightly. Additional Information: Patient seen on [facility] for ostomy assessment. Ostomy Type: Colostomy Surgeon: Tarun Lemus MD Date of Surgery: Jun 22, 2017 Complete: Education materials Additional information Appliance to be changed once supplies are obtained by procedure writer. Victoria Sheth [facility] September 11, 2017 14:37
[2017-09-11] MEDS ORDERED: PROT40TA PO (17:01)
[2017-09-11] MEDS ORDERED: HYDR-4107 PO (17:02)
[2017-09-11] MEDS ORDERED: METO50TA PO (17:02)
[2017-09-11] MEDS ORDERED: METOPROLOL TARTRATE 50 MG TAB PO SCH (21:00)
--- NOTE | 2017-09-11 22:01 | HHI.PR ---
Subjective Remarks C/R Surg POD #6 afebrile, VSS - HR better UO adeq VINCENZO min -dc'd Objective - Vital Signs Date Time Temp Pulse Resp B/P (MAP) Pulse Ox O2 Delivery O2 Flow Rate FiO2 09/11/17 19:00 18 09/11/17 18:09 65 09/11/17 15:37 97.5 114/60 (78) 96 09/10/17 01:06 15.00 100 Result Diagram: 09/10/17 0516 09/11/17 0521 Objective Remarks PE alert Abd - soft, wound dry, stoma pink, A/P Assessment and Plan Imp: OOB decr IVF PT Hospice consult - ?rehab today Tarun Lemus MD September 11, 2017 22:01
--- NOTE | 2017-09-12 11:58 | EKG ---
Date Performed: 09/10/2017 Time Performed: 07:18:32 PTAGE: 72 years EKG: Atrial flutter with uncontrolled ventricular response with 2:1 A-V block. Left axis deviati on Extensive ST-T changes may be due to myocardial ischemia Abnormal ECG NO PREVIOUS TRACING DOCTOR: Ben Chan Interpretating Date/Time 09/12/2017 11:56:27
--- NOTE | 2017-09-12 12:01 | EKG ---
Date Performed: 09/09/2017 Time Performed: 20:10:38 PTAGE: 72 years EKG: SUPRAVENTRICULAR TACHYCARDIA BORDERLINE LEFT AXIS DEVIATION NONSPECIFIC ST & T-WAVE ABNORMA LITY ABNORMAL RHYTHM ECG PREVIOUS TRACING : 06/21/2017 22.03 DOCTOR: Ben Chan Interpretating Date/Time 09/12/2017 12:00:03
== END 2017-09-11 19:50 | DRG 330 ==
LOC: EDSTATUS 12:39 → N07B 12:42 → OBSVTOIN 09-05 15:36 → HCPC 09-05 15:40 → N07B 09-06 15:29 → HCIS 09-09 20:22
PROVIDERS: ADMIT Colon & Rectal Surgery; ATTEND Colon & Rectal Surgery
PROC: 0DBQ0ZZ Excision of Anus, Open Approach (ICD-10-PCS; 2017-09-05)
PROC: 0WUF07Z Supplement Abdominal Wall with Autologous Tissue Substitute, Open Approach (ICD-10-PCS; 2017-09-05)
PROC: 07BC0ZX Excision of Pelvis Lymphatic, Open Approach, Diagnostic (ICD-10-PCS; 2017-09-05)
PROC: 0T788DZ Dilation of Bilateral Ureters with Intraluminal Device, Via Natural or Artificial Opening Endoscopic (ICD-10-PCS; 2017-09-05)
PROC: 0DTP0ZZ Resection of Rectum, Open Approach (ICD-10-PCS; principal; 2017-09-05 12:39)
PROC: 0DBN0ZZ Excision of Sigmoid Colon, Open Approach (ICD-10-PCS; 2017-09-05 12:39)
DX: C20 Malignant neoplasm of rectum (principal); I47.1 Supraventricular tachycardia; F03.90 Unspecified dementia, unspecified severity, without behavioral disturbance, psychotic disturbance, mood disturbance, and anxiety; Z92.3 Personal history of irradiation; Z92.21 Personal history of antineoplastic chemotherapy; Z85.850 Personal history of malignant neoplasm of thyroid; E03.9 Hypothyroidism, unspecified; Z80.0 Family history of malignant neoplasm of digestive organs; Y84.2 Radiological procedure and radiotherapy as the cause of abnormal reaction of the patient, or of later complication, without mention of misadventure at the time of the procedure; Z93.3 Colostomy status
CPT/HCPCS: 36430; 71046; 74176; 80048; 80053; 84443; 84484; 85014; 85018; 85025; 85610; 85730; 86850; 86900; 86901; 86920; 88309; 93005; 94150; C9113; J0153; J0690; J1100; J1885; J1940; J2270; J2310; J2370; J2405; J2710; J2765; J3010; J3480; J7042; J7120; P9016; Q9963